=== PATIENT | female | born 1940 | race Caucasian/White ===

== ENCOUNTER 2016-08-25 15:22 | Inpatient (IN) | payer OTHER ==
[2016-08-25] MEDS ORDERED: SODIUM CHLORIDE 0.9% 3 ML FLUSH FLUSH PRN (15:46)
[2016-08-25] MEDS ORDERED: Albuterol/Ipratropium Neb 3 ML NEB NEB ONE (15:47)
[2016-08-25] MEDS ORDERED: METHYLPREDNISOLONE 125 MG/2 ML VIAL IV ONE (15:47)
[2016-08-25 15:48] VITALS: BMI 34.3
--- NOTE | 2016-08-25 15:52 | EDPRACDOC ---
- General Information Information Source: Patient Mode Of Arrival: Ambulance - History of Present Illness Onset: 2-3 DAYS HPI: PT PRESENTS TO ED SENT FROM PMD OFFICE FOR INCREASED SOB AND COUGH STATES SHE NORMALLY WEARS 4L NC OXYGEN AT HOME AND HAS BEEN INCREASING NEBS AND NOT GETTING MUCH RELIEF. CLEAR TO YELLOW SPUTUM. Shortness of Breath: Mild Relevant History: Reports: COPD Cough: Reports: Productive, Clear, White, Yellow Rhinorrhea: Reports: None Ear Symptoms: Reports: None SOB Worsens with: Reports: Exertion, Coughing SOB Improves with: Reports: Nothing Associated Signs and symptoms: Reports: Cough, Other (INCREASED SOB AND COUGH) <Jamila Yap - Last Filed: 08/25/16 18:11> <Rubin Longoria - Last Filed: 08/25/16 18:16> - General Information Chief Complaint: Dyspnea/Resp distress Stated Complaint: RESP. PROBLEMS Time Seen by Provider: 08/25/16 15:45 Home Medications: Home Medications Citalopram Hydrobromide [Celexa] 20 mg PO DAILY 05/15/15 Ipratropium/Albuterol Sulfate [Combivent Respimat] 1 puff INH RTQ6 05/15/15 Nebulizer [Erapid Nebulizer] 1 each MC .UNKNOWN 05/15/15 Roflumilast [Daliresp] 500 mcg PO DAILY 05/15/15 Furosemide [Lasix] 20 mg PO DAILY 05/21/15 Levalbuterol [Xopenex 1.25 mg] 1.25 mg INH QID 03/24/16 Memantine HCl [Namenda] 28 mg PO DAILY 03/24/16 Tiotropium [place] [Spiriva] 18 mcg INH DAILY 03/24/16 Allergies/Adverse Reactions: Allergies Allergy/AdvReac Type Severity Reaction Status Date / Time donepezil Allergy Unknown Verified 08/25/16 15:28 oxycodone HCl [From Roxicet] Allergy Unknown Verified 08/25/16 15:28 - Treatment Prior to ED Arrival Reported Medications/Treatment [employer] QUALITY CONSULTANT Meds/Treatments Given O2 via Cannula,Neb Treatment(Albuterol) EMS Treatment ALS IV No <Jamila Yap - Last Filed: 08/25/16 18:11> - Treatment Prior to ED Arrival Reported Medications/Treatment AIR QUALITY CONSULTANT Meds/Treatments Given O2 via Cannula,Neb Treatment(Albuterol) EMS Treatment ALS IV No <Rubin Longoria - Last Filed: 08/25/16 18:16> ED Past Medical History - History Reviewed Yes Nurses notes reviewed and agree except as marked Travel Outside of [place] in the Last 3 Months?: No - Patient Medical History Neurological History: Reports: Dementia. Denies: Cerebrovascular Accident, Seizures, Parkinson's Cardiac History: Reports: Hypertension, Hypercholesterolemia, Valvular Heart Disease. Denies: Congestive Heart Failure, Heart Attack, Syncope Respiratory History: Reports: COPD, Pneumonia, Emphysema. Denies: Asthma GI/ History: Reports: Renal Disease, Gastroesophageal Reflux. Denies: Renal Failure, Urinary Tract Infection, Kidney Stones Musculoskeletal History: Reports: Osteoarthritis Psychological History: Reports: Depression, Anxiety. Denies: Substance Use Disorder Systemic History: Reports: Cancer (LUNG), Anemia. Denies: Hyperthyroidism, Hypothyroidism Surgical History: Reports: Hysterectomy (UTERUS ONLY), Other (lobectomy). Denies: Cholecystectomy, Hernia Surgery, Tonsillectomy/Adnoidectomy Date of Last Chemotherapy Date: 2010 - Family Medical History Reports: Diabetes (brother), Cancer (brother). Denies: Hypertension, Stroke, Cardiac Disorders - Social Medical History Smoking Status: Former smoker Social History: Denies: Substance Use Disorder ETOH: None Substance Abuse: None Lives With: Spouse Lives In: Home <Jamila Yap - Last Filed: 08/25/16 18:11> EDM Review of Systems - Review of Systems ROS Negative Except as Marked: Yes All systems reviewed and were negative except as marked Constitutional: No Symptoms Reported. negative: Fever, Chills, Weakness, Fatigue, Loss of Appetite Eyes: No Symptoms Reported. negative: Redness, Blurred Vision, Double Vision, Discharge, Pain, Light Sensitive, Photophobia Ears: No Symptoms Reported. negative: Pain, Hearing Loss, Drainage, Ear Pulling Throat: No Symptoms Reported. negative: Pain, Swelling Nose: No Symptoms Reported. negative: Congestion, Bleeding, Discharge, Injection, Swelling, Deformity, Ecchymosis, Tender, Abrasion, Laceration Mouth: No Symptoms Reported. negative: Pain, Drooling Respiratory: Cough, Shortness of Breath, Wheezing, Sputum. negative: Barky Cough, Brassy Cough, Hemoptysis Cardiovascular: No Symptoms Reported. negative: Chest Pain, Palpitations, Syncope, Edema, Orthopnea, PND, Skin Mottling, Cyanosis Gastrointestinal: No Symptoms Reported. negative: Pain, Constipation, Nausea, Vomiting, Diarrhea, Melena, Formula Intolerance Genitourinary: No Symptoms Reported. negative: Dysuria, Hematuria, Frequency, Discharge, Bleeding, Testicular Pain, Neurological: No Symptoms Reported. negative: Headache, Dizziness, Seizure, Numbness, Weakness, Speech Difficulty, Gait Difficulty Musculoskeletal: No Symptoms Reported. negative: Neck, Chestwall, Ribs, Back, Shoulder, Arm, Elbow, Forearm, Wrist, Hand, Pelvis, Hip, Femur, Knee, Leg, Ankle , Foot Integumentary: No Symptoms Reported. negative: Itching, Rash, Bruising, Wound Allergic/Immunologic: No Symptoms Reported. negative: Hives, Itching Hematologic: No Symptoms Reported. negative: Lymphadenopathy, Easy Bruising, Easy Bleeding Endocrine: No Symptoms Reported. negative: Weight Gain, Weight Loss Psychiatric: No Symptoms Reported. negative: Anxiety, Depression, Hallucinations, Insomnia, Suicidal <Jamila Yap - Last Filed: 08/25/16 18:11> - Physical Exam Constitutional: Alert (Awake), Distress (RESPIRATORY) Oriented to: Time, Person, Place Last recorded Vital Signs: Last Vital Signs Temp 98.6 F 08/25/16 15:44 Pulse 118 08/25/16 15:44 Resp 26 H 08/25/16 15:44 BP 130/59 L 08/25/16 15:44 Pulse Ox 91 08/25/16 15:44 Oxygen Pulse Oxygen Saturation 91 O2 Device Nasal Cannula Oxygen Flow Rate 6 Fraction of Inspired Oxygen ( FIO2) - HEENT Head: Normal ( normocephalic) Eye Exam: Normal (PERRL, EOMI, Sclera white) Oropharynx: Normal (Pharynx:Moist without exudate,Gums-no swelling) Tympanic Membrane: Normal ENT EAC: Normal TMJ: Normal Nose: No Symptoms Reported (septum midline) Neck: Normal (FROM, trachea at midline) - Respiratory/Cardiovascular Respiratory: Accessory Muscle Use, Diminished, Rhonchi, Tachypnea, Wheezes Cardiovascular: Normal (RRR without murmur, gallop or rub) - GI Auscultation: Normal (NABS) Palpation: Normal (Soft,No rebound or guarding, non distended) Tenderness: Non tender Ramirez's Sign: Negative - Bladder: Normal - Musculoskeletal Back: Normal (Non-Tender) Extremities: Normal (Normal tone, Pulses 2+ No cyanosis or edema, FROM) - Integumentary Skin: Normal, Warm, Dry Lymphatics: Normal (no adenopathy) - Neurologic Memory Impaired: Normal Motor Function: Normal (Normal tone, Pulses 2+ No cyanosis or edema, FROM) Cranial Nerve: Normal (CN II-X11 intact sensation, strength 5/5) Cerebellar: Normal Mood Description: Normal Perception: Normal <Jamila Yap - Last Filed: 08/25/16 18:11> - Physical Exam Last recorded Vital Signs: Last Vital Signs Temp 98.6 F 08/25/16 15:44 Pulse 112 08/25/16 17:16 Resp 20 08/25/16 17:16 BP 156/64 08/25/16 17:16 Pulse Ox 91 08/25/16 17:16 Oxygen Pulse Oxygen Saturation 91 O2 Device Nasal Cannula Oxygen Flow Rate 6 Fraction of Inspired Oxygen ( FIO2) <Rubin Longoria - Last Filed: 08/25/16 18:16> ED SOB MDM - Differential Diagnosis Differential Diagnosis: Heart Failure, Pnuemonia, Other (COOPD EXACERBATION) - Results Result Diagrams: 08/25/16 16:05 08/25/16 16:05 - EKG EKG #1 EKG Time: 15:34 -: Yes EKG interpreted by me Rate: bpm: 118 [place]: Normal Rhythm: ST Block: None Hypertrophy: LAE ST: Normal - Diagnostic Imaging CXR Image interpreted by: Radiologist Diagnostic Imaging Comments: Patient Name: CHLOE MACHUCA LOC: ED : 1940 AGE: 76 Order Date:08/25/16 Date of Service: 08/25/16 Report # [id number] Ord Physician: Jamila Yap Exam # [id number] Emergency Physician: Provider,ER Exam(s): [id number] RAD/DG CHEST PORTABLE CLINICAL DATA: Shortness of Breath EXAM: PORTABLE CHEST 1 VIEW COMPARISON: 04/22/2016 and 03/28/2016 FINDINGS: Cardiomediastinal silhouette is stable. Bilateral emphysematous changes again noted. Surgical clips in left axilla . Again noted right perihilar and right upper lobe scarring. Streaky airspace in right base/ infrahilar region highly suspicious for infiltrate superimposed on chronic fibrotic changes. Stable fibrotic changes left base. IMPRESSION: Bilateral emphysematous changes again noted. Surgical clips in left axilla . Again noted right perihilar and right upper lobe scarring. Streaky airspace in right base/ infrahilar region highly suspicious for infiltrate superimposed on chronic fibrotic changes. Stable fibrotic changes left base. Electronically Signed By: Sebastián Mullins M.D. On: 08/25/2016 16:27 Electronically Signed By: Sebastián Mullins MD Electronically Signed Date/Time: 630 Dictate Date/Time: 08/25/161622 Technologist: Fernando Franco Transcribed By: Partha Transcribed Date/Time: 08/25/161626 <Jamila Yap - Last Filed: 08/25/16 18:11> - Results Result Diagrams: 08/25/16 16:05 08/25/16 16:05 Results: WBC 9.9 xk/uL (3.8-10.8) 08/25/16 16:05 RBC 4.39 xM/uL (4.20-5.40) 08/25/16 16:05 Hgb 11.5 g/dL (12.0-16.0) L 08/25/16 16:05 Hct 35.1 % (36-47) L 08/25/16 16:05 MCV 80 fL (81-99) L 08/25/16 16:05 MCH 26.1 pg (27-32) L 08/25/16 16:05 MCHC 32.7 g/dl (33-36) L 08/25/16 16:05 RDW 16.6 % (11.5-14.5) H 08/25/16 16:05 Plt Count 217 xk/uL (130-400) 08/25/16 16:05 MPV 8.4 fL (7.4-10.4) 08/25/16 16:05 Neut % (Auto) 66.9 % (45-76) 08/25/16 16:05 Lymph % (Auto) 20.6 % (17-44) 08/25/16 16:05 [place] % (Auto) 8.9 % (3-10) 08/25/16 16:05 Eos % (Auto) 2.7 % (0-5) 08/25/16 16:05 Baso % (Auto) 0.9 % (0-2) 08/25/16 16:05 Absolute Neuts (auto) 6.53 xk/uL (1.7-8.2) 08/25/16 16:05 Absolute Lymphs (auto) 1.98 xk/uL (0.65-4.75) 08/25/16 16:05 PT 10.7 SEC (9.2-11.2) 08/25/16 16:05 INR 1.0 08/25/16 16:05 APTT 25.7 SEC (22-35) 08/25/16 16:05 Puncture Site Left radial 08/25/16 16:10 pH 7.510 pH UNITS (7.35-7.45) H 08/25/16 16:10 pCO2 39.0 mmHg (35-45) 08/25/16 16:10 pO2 59.0 mmHg (80-100) L 08/25/16 16:10 HCO3 31.1 MMOL/L (22-26) H 08/25/16 16:10 Total CO2 32.3 MMOL/L (23-27) H 08/25/16 16:10 Base Excess 7.5 (+/- 2) H 08/25/16 16:10 FiO2 % 4 lpm 08/25/16 16:10 Specimen Drawn By Stana 08/25/16 16:10 Sodium 141 mEq/L (137-146) 08/25/16 16:05 Potassium 3.2 mEq/L (3.5-5.1) L 08/25/16 16:05 Chloride 97 mEq/L (98-107) L 08/25/16 16:05 Carbon Dioxide 32 mMOL/L (22-33) 08/25/16 16:05 Anion Gap 15 mEq/L (8-16) 08/25/16 16:05 BUN 13 MG/DL (7-17) 08/25/16 16:05 Creatinine 0.80 MG/DL (0.52-1.04) 08/25/16 16:05 Estimated GFR (MDRD) > 60 mL/min (>=60) 08/25/16 16:05 Glucose 99 MG/DL (70-99) 08/25/16 16:05 Calculated Osmolality 271 MOs/Kg (270-290) 08/25/16 16:05 Calcium 9.1 MG/DL (8.4-10.2) 08/25/16 16:05 Corrected Calcium 9.2 MG/DL (8.4-10.2) 08/25/16 16:05 Total Bilirubin 0.7 MG/DL (0.2-1.3) 08/25/16 16:05 AST 25 IU/L (14-36) 08/25/16 16:05 ALT 23 IU/L (9-52) 08/25/16 16:05 Alkaline Phosphatase 94 IU/L (55-165) 08/25/16 16:05 Troponin I < 0.01 ng/mL (<.04) 08/25/16 16:05 Lna-E-Idvbkztxdjx Pept 134 pg/mL (0-900) 08/25/16 16:05 Total Protein 7.3 G/DL (6.3-8.2) 08/25/16 16:05 Albumin 3.9 G/DL (3.5-5.0) 08/25/16 16:05 Lab Results 08/25/16 08/25/16 08/25/16 16:10 16:05 16:05 WBC 9.9 RBC 4.39 Hgb 11.5 L Hct 35.1 L MCV 80 L MCH 26.1 L MCHC 32.7 L RDW 16.6 H Plt Count 217 MPV 8.4 Neut % (Auto) 66.9 Lymph % (Auto) 20.6 [place] % (Auto) 8.9 Eos % (Auto) 2.7 Baso % (Auto) 0.9 Absolute Neuts (auto) 6.53 Absolute Lymphs (auto) 1.98 PT 10.7 INR 1.0 APTT 25.7 Puncture Site Left radial pH 7.510 H pCO2 39.0 pO2 59.0 L HCO3 31.1 H Total CO2 32.3 H Base Excess 7.5 H FiO2 % 4 lpm Specimen Drawn By Stana Sodium Potassium Chloride Carbon Dioxide Anion Gap BUN Creatinine Estimated GFR (MDRD) Glucose Calculated Osmolality Calcium Corrected Calcium Total Bilirubin AST ALT Alkaline Phosphatase Troponin I Mak-[id number] Pept Total Protein Albumin 08/25/16 16:05 WBC RBC Hgb Hct MCV MCH MCHC RDW Plt Count MPV Neut % (Auto) Lymph % (Auto) [place] % (Auto) Eos % (Auto) Baso % (Auto) Absolute Neuts (auto) Absolute Lymphs (auto) PT INR APTT Puncture Site pH pCO2 pO2 HCO3 Total CO2 Base Excess FiO2 % Specimen Drawn By Sodium 141 Potassium 3.2 L Chloride 97 L Carbon Dioxide 32 Anion Gap 15 BUN 13 Creatinine 0.80 Estimated GFR (MDRD) > 60 Glucose 99 Calculated Osmolality 271 Calcium 9.1 Corrected Calcium 9.2 Total Bilirubin 0.7 AST 25 ALT 23 Alkaline Phosphatase 94 Troponin I < 0.01 Aar-T-Bmldvvgazhu Pept 134 Total Protein 7.3 Albumin 3.9 <Rubin Longoria - Last Filed: 08/25/16 18:16> - Departure Education/Counseling Given To: Patient Education/Counseling Given Regarding: Diagnosis, Treatment, Prognosis, Follow Up <Jamila Yap - Last Filed: 08/25/16 18:11> - Departure Yes I personally saw and evaluated the patient. Decision to Admit Time: 18:15 (d/w Dr Caballero, will admit) Decision to admit date: 08/25/16 Decision to admit: from ED <Rubin Longorai - Last Filed: 08/25/16 18:16> - Departure Final Diagnosis: COPD exacerbation, Acute respiratory failure with hypoxia Right lower lobe pneumonia Qualifiers: Pneumonia type: due to unspecified organism Qualified Code(s): J18.1 - Lobar pneumonia, unspecified organism Instructions: COPD (Chronic Obstructive Pulmonary Disease) (ED), Bacterial Pneumonia (ED) Referrals: Anne Rosario PA [Primary Care Provider] - One Week Prescriptions: No Action Roflumilast [Daliresp] 500 mcg PO DAILY Citalopram Hydrobromide [Celexa] 20 mg PO DAILY Ipratropium/Albuterol Sulfate [Combivent Respimat] 1 puff INH RTQ6 Nebulizer [Erapid Nebulizer] 1 each MC .UNKNOWN Furosemide [Lasix] 20 mg PO DAILY Memantine HCl [Namenda] 28 mg PO DAILY Levalbuterol [Xopenex 1.25 mg] 1.25 mg INH QID Tiotropium [place] [Spiriva] 18 mcg INH DAILY
[2016-08-25] MEDS ORDERED: ALBUTEROL 0.083% 3 ML NEB NEB ONE ×2 (15:53→17:47)
[2016-08-25 16:11] LABS: AUTOMATED BASOPHIL 0.9 % (0-2); AUTOMATED EOSINOPHIL 2.7 % (0-5); AUTOMATED LYMPH 20.6 % (17-44); AUTOMATED MONOCYTE 8.9 % (3-10); AUTOMATED NEUTROPHIL 66.9 % (45-76); MPV 8.4 fL (7.4-10.4)
[2016-08-25 16:18] LABS: ALLEN'S TEST PASS; BEb 7.5 (+/- 2); TCO2 32.3 MMOL/L (23-27)
[2016-08-25] MEDS ORDERED: CEFTRIAXONE 2 GM in D5W 100 ML IV ONE (16:21)
[2016-08-25] MEDS ORDERED: AZITHROMYCIN 500 MG in D5W 250 ML IV ONE (16:21)
[2016-08-25 16:22] LABS: ABG Draw Site Left Radial
[2016-08-25 16:24] LABS: PARTIAL THROMB. TIME 25.7 SEC (22-35)
--- NOTE | 2016-08-25 16:30 | DIRPT ---
CLINICAL DATA: Shortness of Breath EXAM: PORTABLE CHEST 1 VIEW COMPARISON: 04/22/2016 and 03/28/2016 FINDINGS: Cardiomediastinal silhouette is stable. Bilateral emphysematous changes again noted. Surgical clips in left axilla . Again noted right perihilar and right upper lobe scarring. Streaky airspace in right base/ infrahilar region highly suspicious for infiltrate superimposed on chronic fibrotic changes. Stable fibrotic changes left base. IMPRESSION: Bilateral emphysematous changes again noted. Surgical clips in left axilla . Again noted right perihilar and right upper lobe scarring. Streaky airspace in right base/ infrahilar region highly suspicious for infiltrate superimposed on chronic fibrotic changes. Stable fibrotic changes left base. Electronically Signed By: Sebastián Mullins M.D. On: 08/25/2016 16:27
[2016-08-25 16:32] LABS: BLOOD UREA NITROGEN 13 MG/DL (7-17); CALC CORRECTED 9.2 MG/DL (8.4-10.2); CALCIUM 9.1 MG/DL (8.4-10.2); CALCULATED OSMOLALITY 271 MOs/Kg (270-290); CHLORIDE 97 mEq/L (98-107); GLUCOSE 99 MG/DL (70-99); SODIUM LEVEL 141 mEq/L (137-146); TOTAL PROTEIN 7.3 G/DL (6.3-8.2)
[2016-08-25] MEDS ORDERED: SODIUM CHLORIDE 0.9% 3 ML FLUSH FLUSH SCH (18:00)
--- NOTE | 2016-08-25 18:42 | HISTPHYS ---
- Chief Complaint shortness of breath - History of Present Illness PRIMARY CARE PROVIDER: Anne Rosario HOSPITAL UNIT CLERK: Dr. Araujo HPI: The patient is a 76yo woman with COPD who presents with shortness of breath. She was coughing and so short of breath that she can barely take a few steps. Now she is even short of breath while resting. Onset: Yesterday. Duration: intermittent. Character: can't get a good breath. Can't do anything because she is so short of breath. Alleviated by: Nothing. Exacerbated by: any exertion. Associated Symptoms: Coughing productive of thick white sputum. Wheezing. Shortness of breath. No chest pain. No fever or chills. Nausea with vomiting. No abdominal pain, diarrhea, constipation, or bloody stool. Difficulty walking, and uses walker, over the last several months. Treatments: none at home except usual medications. Reviewed notes from primary care office; notes greatly appreciated. - Medical History Cardiac History: Reports: Hypertension, Hypercholesterolemia Respiratory History: Reports: COPD (and PULMONARY FIBROSIS. On 4L NC @home.), Pneumonia, Emphysema (and Left PNEUMOTHORAX years ago- 1979.) GI/ History: Reports: Gastroesophageal Reflux Musculoskeletal History: Reports: Osteoarthritis Systemic History: Reports: Cancer (LUNG IIIB (T3N0M0) squamous c. Chemo to 2009. [address] recurrence. Dr[address] Garza.), Anemia Neurological History: Reports: Dementia Psychological History: Reports: Depression, Anxiety. Denies: Substance Use Disorder OTHER HISTORY: ECHOCARDIOGRAM 12/08/2013: EF 65-70% Overall left ventricular systolic function is normal. Diastolic filling pattern indicates impaired relaxation. Mild mitral regurgitation. Mild tricuspid regurgitation. Right ventricular systolic pressure, as measured by Doppler, is 32.9 mmHg. No pericardial effusion. Note: Immunoglobulins and zirdm-3-kmuyrgffvqu were checked by Dr. Araujo during a previous visit, 05/16/2015. Results: Yysgc-8-gijtphepgyk 167, Phenotype MM. 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 She pulled hard on a loom and then became very short of breath. She was found to have a left pneumothorax. Pneumovax: 06/2008 - Surgical History Reports: Hysterectomy (UTERUS ONLY. 1979.), Other (Left lobectomy approx 2009) - Medictions/Allergies Allergies donepezil Allergy (Verified 08/25/16 15:28) Unknown oxycodone HCl [From Roxicet] Allergy (Verified 08/25/16 15:28) Unknown Current Medication List: Reviewed Home Medications Citalopram Hydrobromide [Celexa] 20 mg PO DAILY 05/15/15 Ipratropium/Albuterol Sulfate [Combivent Respimat] 1 puff INH RTQ6 05/15/15 Nebulizer [Erapid Nebulizer] 1 each MC .UNKNOWN 05/15/15 Roflumilast [Daliresp] 500 mcg PO DAILY 05/15/15 Furosemide [Lasix] 20 mg PO DAILY 05/21/15 Levalbuterol [Xopenex 1.25 mg] 1.25 mg INH QID 03/24/16 Memantine HCl [Namenda] 28 mg PO DAILY 03/24/16 Tiotropium [place] [Spiriva] 18 mcg INH DAILY 03/24/16 - Family History Reports: Diabetes (Brother), Cancer (Brother: brain tumor.), Cardiac Disorders ( Brother: CT), Renal Disease (Brother) - Social History Smoking Status: Former smoker (Quit many years ago. Previously 4-5 ppd.) Social History: Denies: Alcohol Use, Substance Use Disorder Worked in a [employer]. The patient reports she lives in [place] but if she has to be hospitalized, she prefers to come to [facility] because the nurses are so nice and are wonderful. She also reports Dr. Araujo has been very helpful to her and she comes here because he can see her at this hospital. - Review of Systems GENERAL: No Fever, chills, or diaphoresis. Positive for fatigue/malaise. HEENT: No ear pain or discharge. No nasal discharge or bleeding. No throat pain or swelling. No eye pain or eye redness. RESPIRATORY: Coughing productive of thick white sputum. Wheezing. Shortness of breath. CARDIOVASCULAR: No chest pain or palpitations. GI: Nausea with vomiting. No abdominal pain, diarrhea, constipation, or bloody stool. NEUROLOGICAL: No headache or focal weakness. INTEGUMENT: no rashes, itching, or lesions. LYMPHATIC SYSTEM: no lymph node swelling or pain. MUSCULOSKELETAL: no pain or joint swelling. GENITOURINARY: No dysuria or hematuria. ENDOCRINE: No polyuria or polydipsia. HEME: No chronic anemia, bleeding, or easy bruising. - Physical Exam Vital Signs: Initial Vitals Temperature 98.6 F 08/25/16 15:44 Pulse Rate 118 08/25/16 15:44 Respiratory Rate 26 H 08/25/16 15:44 Blood Pressure 130/59 L 08/25/16 15:44 Pulse Oxygen Saturation 91 08/25/16 15:44 Vital Signs - 24 hr 08/25/16 08/25/16 15:44 17:16 Temperature 98.6 F Pulse Rate 118 112 Respiratory 26 H 20 Rate Blood Pressure 130/59 L 156/64 Pulse Oxygen 91 91 Saturation Weight: 83.9 kg Height: 5'4" BMI: 31.8 - Other Exam Other Exam Findings: GENERAL: Ill-appearing, well nourished, in acute distress. HEENT: Normocephalic, atraumatic; pupils equal and round. Nares patent, without discharge or bleeding. No oropharyngeal lesions or erythema. Mucous membranes are dry. NECK: is supple, no masses, trachea midline. RESPIRATORY: Clear to auscultation bilaterally. Chest wall movements are symmetric. Tachypnea to 30. Intermittent use of accessory muscles to breathe. Rhonchi on right. Inspiratory and expiratory wheezing. CARDIOVASCULAR: Normal S1, S2. No murmurs, rubs, or gallops. PMI non-displaced. Carotids: no carotid bruits. Mild tachycardia. DP pulses 2+ bilaterally. GI: soft, nontender, non-distended, normal active bowel sounds. No hepatosplenomegaly. INTEGUMENT: Clean, dry, and intact. No rashes. No lesions. MUSCULOSKELETAL: Moving all extremities. No cyanosis. Clubbing noted. Edema: none bilaterally. NEUROLOGICAL: Cranial nerves 2-12 grossly intact. Motor 4/5 throughout. Reflexes : 2+ bilaterally. Babinski: toes downgoing bilaterally. Intact Finger to nose. Sensory grossly intact to light touch. Intact rapid alternating movements bilaterally. No pronator drift. PSYCHIATRIC: Fully oriented. Normal and appropriate affect. LYMPHATIC: No cervical lymphadenopathy. No supraclavicular lymphadenopathy. - Lab Results Laboratory Results - last 24 hr 08/25/16 08/25/16 08/25/16 16:05 16:05 16:05 WBC 9.9 RBC 4.39 Hgb 11.5 L Hct 35.1 L MCV 80 L MCH 26.1 L MCHC 32.7 L RDW 16.6 H Plt Count 217 MPV 8.4 Neut % (Auto) 66.9 Lymph % (Auto) 20.6 [place] % (Auto) 8.9 Eos % (Auto) 2.7 Baso % (Auto) 0.9 Absolute Neuts (auto) 6.53 Absolute Lymphs (auto) 1.98 PT 10.7 INR 1.0 APTT 25.7 Puncture Site pH pCO2 pO2 HCO3 Total CO2 Base Excess FiO2 % Specimen Drawn By Sodium 141 Potassium 3.2 L Chloride 97 L Carbon Dioxide 32 Anion Gap 15 BUN 13 Creatinine 0.80 Estimated GFR (MDRD) > 60 Glucose 99 Calculated Osmolality 271 Calcium 9.1 Corrected Calcium 9.2 Total Bilirubin 0.7 AST 25 ALT 23 Alkaline Phosphatase 94 Troponin I < 0.01 Tne-W-Tnlmpsietep Pept 134 Total Protein 7.3 Albumin 3.9 08/25/16 16:10 WBC RBC Hgb Hct MCV MCH MCHC RDW Plt Count MPV Neut % (Auto) Lymph % (Auto) [place] % (Auto) Eos % (Auto) Baso % (Auto) Absolute Neuts (auto) Absolute Lymphs (auto) PT INR APTT Puncture Site Left radial pH 7.510 H pCO2 39.0 pO2 59.0 L HCO3 31.1 H Total CO2 32.3 H Base Excess 7.5 H FiO2 % 4 lpm Specimen Drawn By Stana Sodium Potassium Chloride Carbon Dioxide Anion Gap BUN Creatinine Estimated GFR (MDRD) Glucose Calculated Osmolality Calcium Corrected Calcium Total Bilirubin AST ALT Alkaline Phosphatase Troponin I Pbv-Z-Cipgrhhpnel Pept Total Protein Albumin Note: Immunoglobulins and zwmgj-1-kckqvkfvjzd were checked by Dr. Araujo during a previous visit, 05/16/2015. Results: Hbhyh-5-budcomdfvay 167, Phenotype MM. (normal) IgG 845 (normal 700-1600) IgA 344 (normal 91-414) IgM 81 (normal 40-230) - Diagnostic Findings DIAGNOSTIC DATA: EK bpm. Sinus tachycardia. Possible left atrial enlargement. Minimal ST depression in V4. Reviewed EKG personally. IMAGING: Chest x-ray, viewed personally: EXAM: PORTABLE CHEST 1 VIEW COMPARISON: 04/22/2016 and 03/28/2016 FINDINGS: Cardiomediastinal silhouette is stable. Bilateral emphysematous changes again noted. Surgical clips in left axilla . Again noted right perihilar and right upper lobe scarring. Streaky airspace in right base/ infrahilar region highly suspicious for infiltrate superimposed on chronic fibrotic changes. Stable fibrotic changes left base. IMPRESSION: Bilateral emphysematous changes again noted. Surgical clips in left axilla . Again noted right perihilar and right upper lobe scarring. Streaky airspace in right base/ infrahilar region highly suspicious for infiltrate superimposed on chronic fibrotic changes. Stable fibrotic changes left base. - Assessment (1) Bacterial lobar pneumonia J15.9 - UNSPECIFIED BACTERIAL PNEUMONIA Acute Present on Admission: Yes Pneumonia. Severe. Requiring continuous oxygen support. Type: Community acquired pneumonia. Criteria for diagnosis: Chest x-ray suggestive of pneumonia, rhonchi on physical exam. Likely bacterial. Plan: Sputum culture has been ordered. Treat with IV ceftriaxone and IV azithromycin. Monitor oxygen saturation levels. (2) Acute and chronic respiratory failure with hypoxia J96.21 - ACUTE AND CHRONIC RESPIRATORY FAILURE WITH HYPOXIA Acute Present on Admission: Yes Increased #L on O2 but patient increasingly tachypneic. PO2 is low at 59 on 4L. Plan: Admit. Place patient on VentiMask 50% and increase as needed. If no improvement then will use BiPAP. Pulmologist consulted. (3) COPD exacerbation J44.1 - CHRONIC OBSTRUCTIVE PULMONARY DISEASE W (ACUTE) EXACERBATION Acute Present on Admission: Yes COPD exacerbation, severe. Plan: Nebs of Duoneb q 6 hours scheduled and albuterol q 2 hours prn. Sputum culture ordered. IV ceftriaxone and IV azithromycin. IV methylprednisolone. Continuous oxygen support. Keep sats below 95% due to COPD. (4) Hypokalemia E87.6 - HYPOKALEMIA Acute Replace potassium with KCl. Check magnesium level and replace as needed. (5) Pulmonary fibrosis J84.10 - PULMONARY FIBROSIS, UNSPECIFIED Acute Present on Admission: Yes Acute on chronic issue. Plan: IV methylprednisolone. Consulted fitness center attendant, Dr. Araujo. (6) Nausea and vomiting R11.2 - NAUSEA WITH VOMITING, UNSPECIFIED Acute Present on Admission: Yes Plan: PRN medications. Case Care Discussed with: Patient, Nursing Staff
[2016-08-25] MEDS ORDERED: PROMETHAZINE 25 MG/ML VIAL IV PRN (20:25)
[2016-08-25] MEDS ORDERED: ONDANSETRON HCL 4 MG/2 ML VIAL IV PRN (20:25)
[2016-08-25] MEDS ORDERED: TEMAZEPAM 15 MG CAP PO PRN (20:25)
[2016-08-25] MEDS ORDERED: SIMETHICONE 80 MG TAB PO PRN (20:25)
[2016-08-25] MEDS ORDERED: SENNA CONCENTRATE TAB PO PRN (20:25)
[2016-08-25] MEDS ORDERED: BISACODYL 5 MG TAB PO PRN (20:25)
[2016-08-25] MEDS ORDERED: ACETAMINOPHEN 325 MG SUPP PR PRN (20:25)
[2016-08-25] MEDS ORDERED: LEVALBUTEROL 1.25 MG in 3 ML NEB NEB PRN (20:30)
[2016-08-25] MEDS: ENOXAPARIN 40 MG/0.4 ML PFS SQ SCH (22:11)
[2016-08-25] MEDS: POTASSIUM CHLORIDE 20 MEQ TAB PO SCH (22:11)
[2016-08-25 22:53] LABS: LEUKOCYTES/URINE NEG (NEGATIVE); NITRITE/URINE NEG (NEGATIVE); RBC/URINE 0-2 (0-5); URINE OCCULT BLOOD NEG (NEG/TRACE); WBC/URINE 0-2 (0-5)
[2016-08-26] MEDS: METHYLPREDNISOLONE 125 MG/2 ML VIAL IV SCH ×4 (00:09→16:34)
[2016-08-26] MEDS ORDERED: Magnesium Sulfate 2 gm/D5W 2 GM/50 ML RTU IV ONE (00:09)
[2016-08-26] MEDS: POTASSIUM CHLORIDE 20 MEQ TAB PO SCH (00:09)
[2016-08-26] MEDS: GUAIFEN 100 MG-DEXTROMETH 10 MG PER 5 ML PO PRN ×2 (00:09→21:44)
[2016-08-26] MEDS ORDERED: Vaccine Screening Complete SCH (01:00)
[2016-08-26] MEDS: Albuterol/Ipratropium Neb 3 ML NEB NEB SCH ×4 (02:06→20:33)
[2016-08-26] MEDS: BENZONATATE 100 MG PERLES PO PRN (03:15)
[2016-08-26 05:21] LABS: MPV 8.9 fL (7.4-10.4)
[2016-08-26 05:44] LABS: BLOOD UREA NITROGEN 15 MG/DL (7-17); CALCIUM 8.9 MG/DL (8.4-10.2); CALCULATED OSMOLALITY 273 MOs/Kg (270-290); CHLORIDE 99 mEq/L (98-107); GLUCOSE 150 mg/dL (70-99); SODIUM LEVEL 140 mEq/L (137-146)
[2016-08-26] MEDS: MEMANTINE HCL 10 MG TAB PO SCH ×2 (08:08→21:21)
[2016-08-26] MEDS: ROFLUMILAST 500 MCG TAB PO SCH (08:09)
[2016-08-26] MEDS: FUROSEMIDE 20 MG TAB PO SCH (08:09)
[2016-08-26] MEDS ORDERED: MEMANTINE HCL 28 MG PO SCH (09:00)
--- NOTE | 2016-08-26 11:20 | GENMEDPROG ---
Chief Complaint: Pneumonia, COPD exacerbation Subjective Note: Doing well, denies any chest pain or fevers. Has her usual chronic cough, sputum is clear as usual. Some dyspnea with exertion. Notes Reviewed: Yes: Events from last night noted and discussed with Clinical Staff Current Medication List: Reviewed Currently: Reports: Cough DVT Prophylaxis: Yes - Physical Examination Vital Signs and I&O: Last Vital Signs Temp 98.3 F 08/26/16 08:06 Pulse 111 08/26/16 09:26 Resp 18 08/26/16 08:06 BP 104/56 L 08/26/16 08:06 Pulse Ox 93 08/26/16 08:06 Oxygen Pulse Oxygen Saturation 93 O2 Device Venturi Mask Oxygen Flow Rate 12 Fraction of Inspired Oxygen ( 50 FIO2) Intake & Output 08/24/16 08/25/16 08/26/16 08/27/16 06:59 06:59 06:59 06:59 Output Total 400 450 Balance -400 -450 Patient's weight 83.659 kg General: Alert, Oriented x3, Mild distress HEENT: EOMI (Sclera white) Neck: Normal Trachea alignment, Normal inspection Lymphatics: Normal (no adenopathy) Respiratory: Accessory Muscle Use, Diminished, Rhonchi, Wheezes Cardiovascular: Regular rate, No Gallops,Rubs/Murmurs GI: Normal bowel sounds, Soft, Non tender (non distended) Extremities/Musculoskeletal: Other (Normal Tone). negative: Edema, Cyanosis Skin: No rashes, No significant lesion Lab/DI/Studies Reviewed: Laboratory Tests 08/26/16 08/26/16 04:25 04:25 WBC 5.7 Hgb 11.3 L Potassium 4.0 BUN 15 Creatinine 0.70 - Assessment (1) Acute and chronic respiratory failure with hypoxia Acute J96.21 - ACUTE AND CHRONIC RESPIRATORY FAILURE WITH HYPOXIA Comment/ Plan: PO2 is low at 59 on 4L, which is her basal rate of home oxygen. Plan: She is being admitted to the hospital for COPD exacerbation and bacterial pneumonia. Place patient on VentiMask 50% and increase as needed. If no improvement then will use BiPAP. Pulmologist Dr. Araujo consulted. (2) Bacterial lobar pneumonia Acute J15.9 - UNSPECIFIED BACTERIAL PNEUMONIA Comment/Plan: Pneumonia. Severe. Requiring continuous oxygen support. Type: Community acquired pneumonia. Criteria for diagnosis: Chest x-ray suggestive of pneumonia, rhonchi on physical exam. Likely bacterial. Plan: Sputum culture has been ordered. Treat with IV ceftriaxone and IV azithromycin. Monitor oxygen saturation levels. (3) COPD exacerbation Acute J44.1 - CHRONIC OBSTRUCTIVE PULMONARY DISEASE W (ACUTE) EXACERBATION Comment/Plan: COPD exacerbation, severe. Plan: Nebs of Duoneb q 6 hours scheduled and albuterol q 2 hours prn. Sputum culture ordered. IV ceftriaxone and IV azithromycin. IV methylprednisolone. Continuous oxygen support. Keep sats below 95% due to COPD. (4) Pulmonary fibrosis Acute J84.10 - PULMONARY FIBROSIS, UNSPECIFIED Comment/Plan: Acute on chronic issue. Plan: Consulted strategic sourcing manager, Dr. Araujo. Case Care Discussed with: Patient, Family, Nursing Staff Total Time: 40
[2016-08-26] MEDS ORDERED: LORAZEPAM 2 MG/ML VIAL IV PRN (15:04)
[2016-08-26] MEDS ORDERED: LORAZEPAM 2 MG/ML VIAL ONE (15:05)
[2016-08-26] MEDS: NS/KCl 20 mEq 1,000 ML IV SCH (15:11)
[2016-08-26] MEDS: AZITHROMYCIN 500 MG in D5W 250 ML IV SCH (15:11)
[2016-08-26] MEDS: ENOXAPARIN 40 MG/0.4 ML PFS SQ SCH (16:34)
[2016-08-26] MEDS: CEFTRIAXONE 1 GM in D5W 100 ML IV SCH (16:35)
[2016-08-27] MEDS: METHYLPREDNISOLONE 125 MG/2 ML VIAL IV SCH ×4 (00:07→17:09)
[2016-08-27] MEDS: NS/KCl 20 mEq 1,000 ML IV SCH ×5 (00:08→20:37)
[2016-08-27] MEDS: Albuterol/Ipratropium Neb 3 ML NEB NEB SCH ×4 (01:48→19:30)
--- NOTE | 2016-08-27 04:17 | HIMCONS ---
DATE OF CONSULT: REQUESTING PHYSICIAN: Landen Barton MD REASON FOR CONSULTATION: Respiratory failure. HISTORY OF PRESENT ILLNESS: This patient is a 76-year-old lady, well known to me from previous office visits. The patient has past medical history significant for COPD and has not been doing well for the past few days. She has been coughing, wheezing, complaining of shortness of breath with dyspnea after walking a few feet. She got worse yesterday. She has been coughing up yellowish phlegm. Denies any fevers or chills. Denies any hemoptysis, hematemesis, hematochezia, or melena. Denies any nausea, vomiting, diarrhea, or constipation. Denies any abdominal pain, leg pains, or swelling. PAST MEDICAL HISTORY: Significant for hypertension, hypercholesterolemia, COPD with pulmonary fibrosis, recurrent pneumonia, history of pneumothorax in , gastroesophageal reflux disease, osteoarthritis; stage IIIB lung cancer, squamous cell, status post chemotherapy with anemia; dementia, depression, anxiety, ejection fraction was 65% to 70%. SURGICAL HISTORY: The patient has had hysterectomy in and left lobectomy in 2009. ALLERGIES: THE PATIENT IS ALLERGIC TO DONEPEZIL AND OXYCODONE. MEDICATION: In the chart were noted. FAMILY HISTORY: Significant for brother having renal disease, cardiac disorders, brain tumor, diabetes. SOCIAL HISTORY: The patient has been a smoker, quit several years ago. No history of alcohol or drug abuse. She used to work in [employer]. REVIEW OF SYSTEMS: Detailed review of systems is negative except for as mentioned in the history of present illness. PHYSICAL EXAMINATION: VITAL SIGNS: Temperature is 98.5 degrees Fahrenheit, pulse is 102, respiratory rate is 18, blood pressure 118/64, pulse ox 96% on oxygen. CHEST: Decreased bilateral air entry with bibasilar rales. HEART: S1, S2. Regular. No murmur. EXTREMITIES: No clubbing, cyanosis, or edema. ABDOMEN: Soft and nontender. Bowel sounds present. Hepatosplenomegaly is absent. NEURO: Grossly nonfocal. The patient is moving all extremities. LABORATORY DATA: White count is 5.7, hemoglobin 11.3, hematocrit 34.8, platelets are 230. PT and INR within normal limits. Blood gas showed a pH of 7.51, pCO2 of 39, PO2 of 59 on 4 liters of oxygen. Sodium 140, potassium 4.0, chloride 99, CO2 of 31, BUN 15, creatinine 0.7, glucose is 150. LFTs are within normal limits. IMAGING REPORTS: Chest x-ray was seen personally and also the CAT scan done over a year ago was noted as well. The patient seems to have significant infiltrates in the lungs with bronchiectasis and right lower lobe fibrosis, also emphysema was noted as well. IMPRESSION: Iwysp-xq-chxompy respiratory failure which is multifactorial including bacterial pneumonia in the right lower lobe with pulmonary fibrosis, chronic obstructive pulmonary disease exacerbation, and possibly bronchiectasis. PLAN: The patient is on Rocephin and Zithromax. I think, this is appropriate at this time. On this patient, I would continue other supportive care, I would add MRSA PCR on this patient. Continue DVT and GI prophylaxis with nebulizers. I would repeat a chest x-ray and a blood gas in the morning. Continue Solu-Medrol 60 mg IV q.6 hours. Thank you very much for the consultation. I will follow the patient with you. [id number]
[2016-08-27 05:27] LABS: MPV 8.8 fL (7.4-10.4)
[2016-08-27 05:38] LABS: ALLEN'S TEST PASS; BEb 1.7 (+/- 2); TCO2 28.6 MMOL/L (23-27)
[2016-08-27 05:40] LABS: ABG Draw Site Left Radial
[2016-08-27 05:40] LABS: BLOOD UREA NITROGEN 24 MG/DL (7-17); CALCIUM 8.5 MG/DL (8.4-10.2); CALCULATED OSMOLALITY 278 MOs/Kg (270-290); CHLORIDE 105 mEq/L (98-107); GLUCOSE 119 mg/dL (70-99); SODIUM LEVEL 142 mEq/L (137-146)
[2016-08-27] MEDS: GUAIFEN 100 MG-DEXTROMETH 10 MG PER 5 ML PO PRN (05:51)
--- NOTE | 2016-08-27 07:14 | DIRPT ---
CLINICAL DATA: Respiratory failure. EXAM: PORTABLE CHEST 1 VIEW COMPARISON: 08/25/2016. CT 04/22/2016. FINDINGS: Mediastinum hilar structures are stable. Stable right upper lobe atelectasis and/or scarring. Interim slight improvement right base infiltrate. Low lung volumes with basilar atelectasis. Chronic interstitial changes. Heart size normal. Surgical clips left axilla. New linear density is noted over the right chest, this could be outside of the patient, attention to this region on follow-up exam suggested. No pneumothorax. IMPRESSION: 1. Interim slight clearing of right base infiltrate. Persistent bibasilar atelectasis. Chronic interstitial changes. 2. Persistent atelectasis and or scarring right upper lobe. 3. Tiny new linear density noted over the right chest, this could be outside of the patient. Attention to this region on follow-up exams suggested. Electronically Signed By: Bobby Corrales On: 08/27/2016 07:12
[2016-08-27] MEDS: ROFLUMILAST 500 MCG TAB PO SCH (09:50)
[2016-08-27] MEDS: MEMANTINE HCL 10 MG TAB PO SCH ×2 (09:50→20:38)
[2016-08-27] MEDS: FUROSEMIDE 20 MG TAB PO SCH (09:50)
--- NOTE | 2016-08-27 10:18 | GENMEDPROG ---
Chief Complaint: PNA Subjective Note: Feeling about the same as the day prior, still with cough, no fever or chest pain. Notes Reviewed: Yes: Events from last night noted and discussed with Clinical Staff Current Medication List: Reviewed Currently: Reports: Cough DVT Prophylaxis: Yes - Physical Examination Vital Signs and I&O: Last Vital Signs Temp 98.0 F 08/27/16 07:48 Pulse 109 08/27/16 08:00 Resp 22 08/27/16 07:48 BP 131/74 08/27/16 07:48 Pulse Ox 98 08/27/16 07:57 Oxygen Pulse Oxygen Saturation 98 O2 Device Nasal Cannula Oxygen Flow Rate 5 Fraction of Inspired Oxygen ( 50 FIO2) Intake & Output 08/25/16 08/26/16 08/27/16 08/28/16 06:59 06:59 06:59 06:59 Intake Total 2449 Output Total 400 1300 300 Balance -400 1149 -300 Patient's weight 83.659 kg General: Alert, Oriented x3, Mild distress HEENT: EOMI (Sclera white) Neck: Normal Trachea alignment, Normal inspection Lymphatics: Normal (no adenopathy) Respiratory: Accessory Muscle Use, Diminished, Rhonchi, Wheezes Cardiovascular: Regular rate, No Gallops,Rubs/Murmurs GI: Normal bowel sounds, Soft, Non tender (non distended) Extremities/Musculoskeletal: Other (Normal Tone). negative: Edema, Cyanosis Skin: No rashes, No significant lesion Lab/DI/Studies Reviewed: Laboratory Tests 08/27/16 08/27/16 08/27/16 04:55 04:55 05:30 WBC 11.0 H Hgb 10.6 L Plt Count 209 pH 7.390 pCO2 45.0 pO2 105.0 H Potassium 4.5 BUN 24 H Creatinine 0.80 - Assessment (1) Acute and chronic respiratory failure with hypoxia Acute J96.21 - ACUTE AND CHRONIC RESPIRATORY FAILURE WITH HYPOXIA Comment/ Plan: PO2 is low at 59 on 4L, which is her basal rate of home oxygen. Plan: She was admitted to the hospital for COPD exacerbation and bacterial pneumonia. Patient initially placed on Ventimask 50%, increased as needed. She is now titrated down to 5 liters/minute nasal cannula oxygen.. If no improvement then will use BiPAP. Pulmologist Dr. Araujo consulted. (2) Bacterial lobar pneumonia Acute J15.9 - UNSPECIFIED BACTERIAL PNEUMONIA Comment/Plan: Pneumonia. Severe. Requiring continuous oxygen support. Type: Community acquired pneumonia. Criteria for diagnosis: Chest x-ray suggestive of pneumonia, rhonchi on physical exam. Likely bacterial. Plan: Sputum culture has been ordered. Treat with IV ceftriaxone and IV azithromycin. Monitor oxygen saturation levels. (3) COPD exacerbation Acute J44.1 - CHRONIC OBSTRUCTIVE PULMONARY DISEASE W (ACUTE) EXACERBATION Comment/Plan: COPD exacerbation, severe. Plan: Nebs of Duoneb q 6 hours scheduled and albuterol q 2 hours prn. Sputum culture ordered. IV ceftriaxone and IV azithromycin. IV methylprednisolone. Continuous oxygen support. Keep sats below 95% due to COPD. (4) Pulmonary fibrosis Acute J84.10 - PULMONARY FIBROSIS, UNSPECIFIED Comment/Plan: Acute on chronic issue. Plan: Consulted systems engineer, Dr. Araujo. - Plan Continue present care with empiric IV antibiotics and steroids. Will keep steroids at current dose today as she is not improving yet. Case Care Discussed with: Patient, Consultants, Nursing Staff Total Time: 39
--- NOTE | 2016-08-27 13:29 | PCM.PULM ---
Chief Complaint: Respiratory failure acute on chronic with hypoxia Pulmonary fibrosis Pneumonia COPD exacerbation Patient sitting at bedside alert and responsive breathing has been short, she has a cough, sputum, wheeze. Denies chest pain or hemoptysis Medication list reviewed:yes Notes reviewed;yes, Events from last night noted and discussed with Clinical Staff DVT/GI prophylaxis;yes - Physical Examination Vital Signs and I&O: Last Vital Signs Temp 97.7 F 08/27/16 11:11 Pulse 116 08/27/16 12:00 Resp 20 08/27/16 11:11 BP 109/56 L 08/27/16 11:11 Pulse Ox 95 08/27/16 11:11 Oxygen Pulse Oxygen Saturation 95 O2 Device Nasal Cannula Oxygen Flow Rate 5 Fraction of Inspired Oxygen ( 50 FIO2) Intake & Output 08/24/16 08/25/16 08/26/16 08/27/16 23:59 23:59 23:59 23:59 Intake Total 1065 1384 Output Total 100 1300 600 Balance -100 -235 784 Patient's weight 83.915 kg 83.659 kg General: Alert, Oriented x3, Cooperative, Mild distress, Obese, Weakness, Fatigue Respiratory: Accessory Muscle Use, Diminished, Rhonchi, Tachypnea, Wheezes Cardiovascular: Regular rate, Regular rate and rhythm, Normal S1, No Gallops, Rubs/Murmurs, Normal S2, Good Pedal Pulses GI: Normal bowel sounds, Soft, Non tender, No hepatospenomegaly, No masses, Obese Extremities/Musculoskeletal: Normal pulses, Edema (1+ BLEs noted) Skin: Warm,Dry and Intact, No rashes, No breakdown, No significant lesion Neurological: Normal Steady Gait, Normal speech, Normal tone, Cranial nerves 3- 12 NL Psych/Mental Status: Appropriate, Anxious Result Diagrams: 08/27/16 04:55 08/27/16 04:55 Labs (last 24 hours): Laboratory Results - last 24 hr 08/27/16 08/27/16 08/27/16 04:55 04:55 05:30 WBC 11.0 H RBC 4.03 L Hgb 10.6 L Hct 32.6 L MCV 81 MCH 26.2 L MCHC 32.3 L RDW 16.4 H Plt Count 209 MPV 8.8 Puncture Site Left radial pH 7.390 pCO2 45.0 pO2 105.0 H HCO3 27.2 H Total CO2 28.6 H Base Excess 1.7 FiO2 % Vm 50% Specimen Drawn By Stana Sodium 142 Potassium 4.5 Chloride 105 Carbon Dioxide 28 Anion Gap 14 BUN 24 H Creatinine 0.80 Estimated GFR (MDRD) > 60 Glucose 119 H Calculated Osmolality 278 Calcium 8.5 Lab/DI/Studies Reviewed: EKG: NSR, NO ST or ST wave changes noted Microbiology 08/27/16 02:45 Nares Nasal Screen MRSA (PCR)([place]) - Final NEGATIVE for MRSA DNA 08/25/16 19:47 Sputum Gram Stain - Final 08/25/16 19:47 Sputum Sputum Culture - Final Normal oral/respiratory david present 08/25/16 22:35 Urine - Clean Catch - Midstream Urine Culture - Preliminary Escherichia coli 08/25/16 17:10 Blood Blood Culture - Preliminary No growth aerobically or anaerobically at 24-48 hours. NORMAL VALUE = No growth 08/25/16 17:00 Blood Blood Culture - Preliminary No growth aerobically or anaerobically at 24-48 hours. NORMAL VALUE = No growth Cxray; 1 view Chest x-ray was seen personally patient has improving right hilar infiltrate persistent atelectasis of bases were noted bilaterally hyperinflated lung siddiqui Medications Acetaminophen (Tylenol Tablet) 650 mg PO Q6H PRN; Protocol PRN Reason: Mild Pain or Fever above 100.4 Stop: 09/08/16 16:59 Albuterol/Ipratropium (Duoneb) 3 ml NEB RTQ6 DANO Stop: 09/08/16 16:59 Last Admin: 08/27/16 13:33 Dose: 3 ml Benzonatate (Tessalon) 100 mg PO TID PRN PRN Reason: Cough - First Option Stop: 09/08/16 16:59 Last Admin: 08/26/16 03:15 Dose: 100 mg Ceftriaxone Sodium 1 gm/ (Dextrose) 100 mls @ 100 mls/hr IV Q24H DANO Stop: 09/02/16 17:59 Last Admin: 08/26/16 16:35 Dose: 100 mls/hr Enoxaparin Sodium (Lovenox) 40 mg SQ 1800 DANO Stop: 09/08/16 20:59 Last Admin: 08/26/16 16:34 Dose: 40 mg Furosemide (Lasix) 20 mg PO DAILY DANO Stop: 09/09/16 08:59 Last Admin: 08/27/16 09:50 Dose: 20 mg Guaifenesin/Dextromethorphan (Robitussin Dm) 10 ml PO Q6H PRN PRN Reason: Cough - Alternative Stop: 09/08/16 16:59 Last Admin: 08/27/16 05:51 Dose: 10 ml Levalbuterol HCl (Xopenex 1.25 Mg) 1.25 mg NEB Q2H PRN PRN Reason: Wheezing Stop: 09/08/16 16:59 Lorazepam (Ativan) 1 mg IV Q4H PRN PRN Reason: Anxiety Stop: 09/09/16 16:59 Memantine (Namenda) 10 mg PO BID DANO Stop: 09/09/16 08:59 Last Admin: 08/27/16 09:50 Dose: 10 mg Methylprednisolone Sodium Succinate (Solu-Medrol) 60 mg IV Q6H DANO Stop: 09/09/16 00:00 Last Admin: 08/27/16 11:56 Dose: 60 mg Ondansetron HCl (Zofran) 4 mg IV Q6H PRN PRN Reason: Nausea/Vomiting - First Option Stop: 09/08/16 16:59 Potassium Chloride/Sodium Chloride (Normal Saline-Kcl 20 Meq Per 1000 Ml) 1, 000 mls @ 100 mls/hr IV Q10H [facility] Stop: 09/09/16 14:59 Last Admin: 08/27/16 11:54 Dose: 100 mls/hr Roflumilast (Daliresp) 500 mcg PO DAILY [facility] Stop: 09/09/16 08:59 Last Admin: 08/27/16 09:50 Dose: 500 mcg Temazepam (Restoril) 15 mg PO 2100,2200 PRN PRN Reason: Sleep or Insomnia Stop: 09/08/16 16:59 - Assessment/Plan (1) Acute and chronic respiratory failure with hypoxia Acute J96.21 - ACUTE AND CHRONIC RESPIRATORY FAILURE WITH HYPOXIA Comment/Plan: Patient remains on Rocephin and Zithromax and has been on Solu-Medrol 60 mg IV q.6 hours along with nebulizers DVT and GI prophylaxis and oxygen. I told the patient to use the BiPAP while she is sleeping at night and told the nurse to put the BiPAP on her as she seemed to be a little more short of breath than usual I would continue other supportive care on this patient repeat a chest x- ray and a blood gas in the morning (2) Bacterial lobar pneumonia Acute J15.9 - UNSPECIFIED BACTERIAL PNEUMONIA Comment/Plan: Continue other supportive care on this patient with the lower Rocephin and Zithromax and continue full supportive care (3) COPD exacerbation Acute J44.1 - CHRONIC OBSTRUCTIVE PULMONARY DISEASE W (ACUTE) EXACERBATION Comment/Plan: No change in current treatment patient still remains significantly hypoxic and tachypneic (4) Pulmonary fibrosis Acute J84.10 - PULMONARY FIBROSIS, UNSPECIFIED Comment/Plan: Unchanged clinically at this time no change in the treatment I personally saw and evaluated the patient.: Yes Total Face to Face Time: 35 minutes Case Care Discussed with: Patient, Nursing Staff (Nursing staff was instructed to put the patient on BiPAP) Education/Counseling Given To: Patient Education/Counseling Given Regarding: Diagnosis, Treatment, Prognosis, Follow Up , Disposition Plan Plan / Addtional Notes: Patient is critically ill and is in danger of getting worse would follow the patient closely
[2016-08-27 15:58] LABS: ALLEN'S TEST PASS; BEb -0.6 (+/- 2); TCO2 24.3 MMOL/L (23-27)
[2016-08-27 15:59] LABS: ABG Draw Site Right Radial
[2016-08-27] MEDS: AZITHROMYCIN 500 MG in D5W 250 ML IV SCH (17:05)
[2016-08-27] MEDS: ENOXAPARIN 40 MG/0.4 ML PFS SQ SCH (17:08)
[2016-08-27] MEDS ORDERED: NS 1,000 ML IV ONE (17:43)
[2016-08-27] MEDS: CEFTRIAXONE 1 GM in D5W 100 ML IV SCH (17:47)
[2016-08-27] MEDS: ACETAMINOPHEN 325 MG/TAB TABLET PO PRN (20:38)
[2016-08-28] MEDS: METHYLPREDNISOLONE 125 MG/2 ML VIAL IV SCH ×5 (00:13→23:49)
[2016-08-28] MEDS: Albuterol/Ipratropium Neb 3 ML NEB NEB SCH ×4 (01:36→20:18)
[2016-08-28] MEDS: NS/KCl 20 mEq 1,000 ML IV SCH ×3 (04:50→17:27)
[2016-08-28 05:24] LABS: ALLEN'S TEST PASS; TCO2 29.2 MMOL/L (23-27)
[2016-08-28 05:30] LABS: ABG Draw Site Left Radial
[2016-08-28 07:16] LABS: BLOOD UREA NITROGEN 23 MG/DL (7-17); CALCIUM 8.3 MG/DL (8.4-10.2); CALCULATED OSMOLALITY 278 MOs/Kg (270-290); CHLORIDE 109 mEq/L (98-107); GLUCOSE 113 mg/dL (70-99); SODIUM LEVEL 142 mEq/L (137-146)
[2016-08-28 07:23] LABS: MPV 8.8 fL (7.4-10.4)
[2016-08-28] MEDS: MEMANTINE HCL 10 MG TAB PO SCH ×2 (07:32→20:35)
[2016-08-28] MEDS: FUROSEMIDE 20 MG TAB PO SCH (07:32)
[2016-08-28] MEDS: ROFLUMILAST 500 MCG TAB PO SCH (07:32)
--- NOTE | 2016-08-28 07:42 | DIRPT ---
CLINICAL DATA: Respiratory failure EXAM: PORTABLE CHEST 1 VIEW COMPARISON: 08/27/2016 FINDINGS: Portable exam slightly rotated to the right. Severe background emphysema again evident with mild elevation of the right hemidiaphragm. Stable right upper lobe perihilar atelectasis/scarring. Chronic basilar interstitial changes. No superimposed edema, effusion, or pneumothorax. Postop clips in left axilla. IMPRESSION: Stable chronic COPD/emphysema and right upper lobe perihilar atelectasis/scarring. Chronic basilar interstitial changes, worse on the right No significant interval change or new process. Electronically Signed By: Moriah Schmidt M.D. On: 08/28/2016 07:39
--- NOTE | 2016-08-28 08:02 | PCM.PULM ---
Chief Complaint: Respiratory failure acute on chronic Pneumonia COPD exacerbation Pulmonary fibrosis Hypoxia Patient sitting at bedside breathing still short, has a lot of chest congestion. She wears BIPAP at night with some help. Current complaints: Dyspnea,CURTIS,cough,wheeze, fatigue Current medication list reviewed:yes Notes reviewed:yes, Events from last night noted and discussed with Clinical Staff - Physical Examination Vital Signs and I&O: Last Vital Signs Temp 98.0 F 08/28/16 07:51 Pulse 105 08/28/16 07:51 Resp 22 08/28/16 07:51 BP 134/79 08/28/16 07:51 Pulse Ox 95 08/28/16 07:55 Oxygen Pulse Oxygen Saturation 95 O2 Device Nasal Cannula Oxygen Flow Rate 5 Fraction of Inspired Oxygen ( 40 FIO2) Intake & Output 08/25/16 08/26/16 08/27/16 08/28/16 23:59 23:59 23:59 23:59 Intake Total 1065 3112 1190 Output Total 100 1300 2500 600 Balance -100 -235 612 590 Patient's weight 83.915 kg 83.659 kg 89.584 kg General: Alert, Oriented x3, Mild distress, Obese, Fatigue Respiratory: Accessory Muscle Use, Diminished, Rhonchi, Tachypnea, Wheezes ( Scattered bilateral) Cardiovascular: Regular rate (to sinus tach at rate of 110/min), Regular rate and rhythm, Normal S1, No Gallops,Rubs/Murmurs, Normal S2 GI: Normal bowel sounds, Soft, Non tender, No hepatospenomegaly, No masses, Obese Extremities/Musculoskeletal: Normal pulses, Swelling (1+bilateral lower legs) Skin: Warm,Dry and Intact, No rashes, No significant lesion Neurological: Normal Steady Gait, Normal speech, Strength at 5/5 X4 ext, Cranial nerves 3-12 NL Psych/Mental Status: Normal Affect, Anxious Result Diagrams: 08/28/16 05:40 08/28/16 05:40 Labs (last 24 hours): Laboratory Results - last 24 hr 08/27/16 08/28/16 08/28/16 20:47 05:20 05:40 WBC RBC Hgb Hct MCV MCH MCHC RDW Plt Count MPV Puncture Site Left radial pH 7.380 pCO2 47.0 H pO2 112.0 H HCO3 27.8 H Total CO2 29.2 H Base Excess 2.0 FiO2 % 40 Mode BiPAP 10/5 Specimen Drawn By Kaytr Sodium 142 Potassium 4.4 Chloride 109 H Carbon Dioxide 28 Anion Gap 9 BUN 23 H Creatinine 0.70 Estimated GFR (MDRD) > 60 Glucose 113 H Calculated Osmolality 278 Lactic Acid 3.4 H Calcium 8.3 L 08/28/16 05:40 WBC 7.6 RBC 3.91 L Hgb 10.3 L Hct 31.7 L MCV 81 MCH 26.3 L MCHC 32.5 L RDW 16.5 H Plt Count 181 MPV 8.8 Puncture Site pH pCO2 pO2 HCO3 Total CO2 Base Excess FiO2 % Mode BiPAP Specimen Drawn By Sodium Potassium Chloride Carbon Dioxide Anion Gap BUN Creatinine Estimated GFR (MDRD) Glucose Calculated Osmolality Lactic Acid Calcium Lab/DI/Studies Reviewed: EKG: NSR to sinus tachycardia at rate of 110. No ST wave changes noted Cxray: 1 view Chest x-ray was seen personally patient has hyperinflated lung siddiqui with right hilar fullness and right upper lobe either atelectasis versus scarring and bibasilar atelectasis was noted as well Medications Azithromycin 500 mg/ Dextrose 250 mls @ 250 mls/hr IV Q24H DANO Stop: 08/31/16 15:59 Last Admin: 08/26/16 15:11 Dose: 250 mls/hr Acetaminophen (Tylenol Tablet) 650 mg PO Q6H PRN; Protocol PRN Reason: Mild Pain or Fever above 100.4 Stop: 09/08/16 16:59 Albuterol/Ipratropium (Duoneb) 3 ml NEB RTQ6 DANO Stop: 09/08/16 16:59 Last Admin: 08/27/16 13:33 Dose: 3 ml Benzonatate (Tessalon) 100 mg PO TID PRN PRN Reason: Cough - First Option Stop: 09/08/16 16:59 Last Admin: 08/26/16 03:15 Dose: 100 mg Ceftriaxone Sodium 1 gm/ (Dextrose) 100 mls @ 100 mls/hr IV Q24H [facility]ANO Stop: 09/02/16 17:59 Last Admin: 08/26/16 16:35 Dose: 100 mls/hr Enoxaparin Sodium (Lovenox) 40 mg SQ 1800 DANO Stop: 09/08/16 20:59 Last Admin: 08/26/16 16:34 Dose: 40 mg Guaifenesin/Dextromethorphan (Robitussin Dm) 10 ml PO Q6H PRN PRN Reason: Cough - Alternative Stop: 09/08/16 16:59 Last Admin: 08/27/16 05:51 Dose: 10 ml Levalbuterol HCl (Xopenex 1.25 Mg) 1.25 mg NEB Q2H PRN PRN Reason: Wheezing Stop: 09/08/16 16:59 Lorazepam (Ativan) 1 mg IV Q4H PRN PRN Reason: Anxiety Stop: 09/09/16 16:59 Memantine (Namenda) 10 mg PO BID DANO Stop: 09/09/16 08:59 Last Admin: 08/27/16 09:50 Dose: 10 mg Methylprednisolone Sodium Succinate (Solu-Medrol) 60 mg IV Q6H DANO Stop: 09/09/16 00:00 Last Admin: 08/27/16 11:56 Dose: 60 mg Ondansetron HCl (Zofran) 4 mg IV Q6H PRN PRN Reason: Nausea/Vomiting - First Option Stop: 09/08/16 16:59 Roflumilast (Daliresp) 500 mcg PO DAILY [facility]ANO Stop: 09/09/16 08:59 Last Admin: 08/27/16 09:50 Dose: 500 mcg Temazepam (Restoril) 15 mg PO 2100,2200 PRN PRN Reason: Sleep or Insomnia Stop: 09/08/16 16:59 Furosemide (Lasix) 20 mg PO DAILY DANO Stop: 09/09/16 08:59 Last Admin: 08/28/16 07:32 Dose: 20 mg Potassium Chloride/Sodium Chloride (Normal Saline-Kcl 20 Meq Per 1000 Ml) 1, 000 mls @ 100 mls/hr IV Q10H DANO Stop: 09/09/16 14:59 Last Admin: 08/28/16 04:50 Dose: 100 mls/hr - Assessment/Plan (1) Acute and chronic respiratory failure with hypoxia Acute J96.21 - ACUTE AND CHRONIC RESPIRATORY FAILURE WITH HYPOXIA Comment/Plan: Patient is on Rocephin and Zithromax and also on Solu-Medrol 60 mg IV q.6 hours I would continue that for now along with DVT and GI prophylaxis oxygen nebulizers and BiPAP patient has been on having off and on episodes of wheezing and tightness in her chest her chest x-ray shows right hilar fullness which was improved yesterday and is worse today would go ahead and get a CT scan of the chest today to further evaluate that patient's long-term prognosis is guarded would follow the patient closely repeat a blood gas in the morning (2) Bacterial lobar pneumonia Acute J15.9 - UNSPECIFIED BACTERIAL PNEUMONIA (3) COPD exacerbation Acute J44.1 - CHRONIC OBSTRUCTIVE PULMONARY DISEASE W (ACUTE) EXACERBATION (4) Pulmonary fibrosis Acute J84.10 - PULMONARY FIBROSIS, UNSPECIFIED
[2016-08-28] MEDS ORDERED: Pharmacy Review for Metformin - IV Contrast Given SCH (10:00)
--- NOTE | 2016-08-28 11:21 | DIRPT ---
CLINICAL DATA: Cough. Evaluate pneumonia. Respiratory failure. History of lung cancer with prior radiation and chemotherapy. EXAM: CT CHEST WITH CONTRAST TECHNIQUE: Multidetector CT imaging of the chest was performed during intravenous contrast administration. CONTRAST: 80 cc of Isovue 370 COMPARISON: Chest radiograph of 08/28/2016. Most recent CT of 04/22/2016. FINDINGS: Mediastinum/Nodes: No supraclavicular adenopathy. left axillary node dissection. Advanced aortic and branch vessel atherosclerosis. Normal heart size, without pericardial effusion. Multivessel coronary artery atherosclerosis. No mediastinal or hilar adenopathy. Small hiatal hernia. Lungs/Pleura: No pleural fluid. Mild motion degradation throughout. Severe centrilobular emphysema. Left lower lobe 4 mm nodule on image 41/series 4 was present on the prior exam and can be considered benign. High superior segment right lower lobe nodule is also unchanged on image 15/ series 4. Similar appearance of presumed treatment effects within the anterior aspect of the right upper lobe. Right lower lobe scarring. Upper abdomen: Normal imaged portions of the liver, spleen. Incompletely imaged left larger than right adrenal nodules, likely adenomas. The left-sided nodule measures 1.8 cm. Musculoskeletal: No acute osseous abnormality. IMPRESSION: 1. Mildly motion degraded exam. 2. Similar advanced centrilobular emphysema with presumed treatment effects in the anterior right upper lobe. 3. Atherosclerosis, including within the coronary arteries. 4. Similar bilateral adrenal adenomas. Electronically Signed By: Shay Rivas M.D. On: 08/28/2016 11:18
--- NOTE | 2016-08-28 12:48 | GENMEDPROG ---
Chief Complaint: COPD exacerbation Subjective Note: Still with significant cough, dyspnea on exertion. Denies any chest pain or fevers. Notes Reviewed: Yes: Events from last night noted and discussed with Clinical Staff Current Medication List: Reviewed DVT Prophylaxis: Yes - Physical Examination Vital Signs and I&O: Last Vital Signs Temp 98.0 F 08/28/16 07:51 Pulse 121 H 08/28/16 12:00 Resp 22 08/28/16 12:00 BP 131/88 08/28/16 12:00 Pulse Ox 90 L 08/28/16 12:00 Oxygen Pulse Oxygen Saturation 90 O2 Device Nasal Cannula Oxygen Flow Rate 5 Fraction of Inspired Oxygen ( 40 FIO2) Intake & Output 08/26/16 08/27/16 08/28/16 08/29/16 06:59 06:59 06:59 06:59 Intake Total 2449 2918 200 Output Total 400 1300 2400 920 Balance -400 1149 518 -720 Patient's weight 83.659 kg 89.584 kg General: Alert, Oriented x3, Mild distress HEENT: EOMI (Sclera white) Neck: Normal Trachea alignment, Normal inspection Lymphatics: Normal (no adenopathy) Respiratory: Accessory Muscle Use, Diminished, Rhonchi, Wheezes Cardiovascular: Regular rate, No Gallops,Rubs/Murmurs GI: Normal bowel sounds, Soft, Non tender (non distended) Extremities/Musculoskeletal: Other (Normal Tone). negative: Edema, Cyanosis Skin: No rashes, No significant lesion Lab/DI/Studies Reviewed: Laboratory Tests 08/28/16 08/28/16 08/28/16 05:20 05:40 05:40 WBC 7.6 Hgb 10.3 L Hct 31.7 L pH 7.380 pCO2 47.0 H pO2 112.0 H Potassium 4.4 BUN 23 H Creatinine 0.70 - Assessment (1) Acute and chronic respiratory failure with hypoxia Acute J96.21 - ACUTE AND CHRONIC RESPIRATORY FAILURE WITH HYPOXIA Comment/ Plan: PO2 is low at 59 on 4L, which is her basal rate of home oxygen. Plan: She was admitted to the hospital for COPD exacerbation and bacterial pneumonia. Patient initially placed on Ventimask 50%, increased as needed. She is now titrated down to 5 liters/minute nasal cannula oxygen.. Continue BiPAP at night. Pulmologist Dr. Araujo consulted and following. CT scan of the chest was performed this morning, with continued emphysematous changes but no consolidation. (2) Bacterial lobar pneumonia Acute J15.9 - UNSPECIFIED BACTERIAL PNEUMONIA Comment/Plan: Pneumonia. Severe. Requiring continuous oxygen support. Type: Community acquired pneumonia. Criteria for diagnosis: Chest x-ray suggestive of pneumonia, rhonchi on physical exam. Likely bacterial. Plan: Sputum culture has been ordered. Treat with IV ceftriaxone and IV azithromycin. Monitor oxygen saturation levels. (3) COPD exacerbation Acute J44.1 - CHRONIC OBSTRUCTIVE PULMONARY DISEASE W (ACUTE) EXACERBATION Comment/Plan: COPD exacerbation, severe. Plan: Nebs of Duoneb q 6 hours scheduled and albuterol q 2 hours prn. Sputum culture ordered. IV ceftriaxone and IV azithromycin. IV methylprednisolone. Continuous oxygen support. Keep sats below 95% due to COPD. (4) Pulmonary fibrosis Acute J84.10 - PULMONARY FIBROSIS, UNSPECIFIED Comment/Plan: Acute on chronic issue. Plan: Consulted vice squad police officer, Dr. Araujo.
[2016-08-28] MEDS: AZITHROMYCIN 500 MG in D5W 250 ML IV SCH (15:09)
[2016-08-28] MEDS: BENZONATATE 100 MG PERLES PO PRN (15:36)
[2016-08-28] MEDS: CEFTRIAXONE 1 GM in D5W 100 ML IV SCH (17:28)
[2016-08-28] MEDS: ENOXAPARIN 40 MG/0.4 ML PFS SQ SCH (17:28)
[2016-08-28] MEDS: GUAIFEN 100 MG-DEXTROMETH 10 MG PER 5 ML PO PRN (21:50)
[2016-08-29] MEDS: Albuterol/Ipratropium Neb 3 ML NEB NEB SCH ×4 (01:50→19:47)
[2016-08-29 02:57] LABS: BLOOD UREA NITROGEN 23 MG/DL (7-17); CALCIUM 8.4 MG/DL (8.4-10.2); CALCULATED OSMOLALITY 273 MOs/Kg (270-290); CHLORIDE 106 mEq/L (98-107); GLUCOSE 112 mg/dL (70-99); SODIUM LEVEL 139 mEq/L (137-146)
[2016-08-29 05:07] LABS: ALLEN'S TEST PASS; BEb 2.7 (+/- 2); TCO2 27.3 MMOL/L (23-27)
[2016-08-29 05:11] LABS: ABG Draw Site Left Radial
[2016-08-29] MEDS: NS/KCl 20 mEq 1,000 ML IV SCH ×2 (05:23→13:16)
[2016-08-29] MEDS: METHYLPREDNISOLONE 125 MG/2 ML VIAL IV SCH ×3 (05:23→20:35)
[2016-08-29] MEDS: GUAIFEN 100 MG-DEXTROMETH 10 MG PER 5 ML PO PRN ×2 (06:38→23:05)
[2016-08-29] MEDS: MEMANTINE HCL 10 MG TAB PO SCH ×2 (08:00→20:34)
[2016-08-29] MEDS: FUROSEMIDE 20 MG TAB PO SCH (08:01)
[2016-08-29] MEDS: ROFLUMILAST 500 MCG TAB PO SCH (08:01)
--- NOTE | 2016-08-29 08:50 | PCM.PULM ---
Chief Complaint: Uneventful overnight with no acute distress Breathing is improving slowly. Still has some SOB,CURTIS,cough and wheeze. On oxygen and wears BIPAP at night Current medication list and notes reviewed:yes, Events from last night noted and discussed with Clinical Staff DVT prophylaxis:yes - Physical Examination Vital Signs and I&O: Last Vital Signs Temp 97.8 F 08/29/16 07:41 Pulse 105 08/29/16 07:41 Resp 20 08/29/16 07:41 BP 127/68 08/29/16 07:41 Pulse Ox 98 08/29/16 08:14 Oxygen Pulse Oxygen Saturation 98 O2 Device Nasal Cannula Oxygen Flow Rate 5 Fraction of Inspired Oxygen ( 40 FIO2) Intake & Output 08/26/16 08/27/16 08/28/16 08/29/16 23:59 23:59 23:59 23:59 Intake Total 1065 3112 3150 1276 Output Total 1300 2500 2095 650 Balance -512 639 4014 626 Patient's weight 83.659 kg 89.584 kg 89.471 kg General: Alert, Oriented x3, Mild distress, Obese, Fatigue (improved) Respiratory: Accessory Muscle Use, Diminished, Rhonchi, Tachypnea, Wheezes ( improved) Cardiovascular: Regular rate, Regular rate and rhythm, Normal S1, No Gallops, Rubs/Murmurs, Normal S2, Good Pedal Pulses, Other (sinus tachycardia at rate of 110 on exertions) GI: Normal bowel sounds, Soft, Non tender, No hepatospenomegaly, No masses, Obese Extremities/Musculoskeletal: Normal pulses, Edema Skin: Warm,Dry and Intact, No rashes, No breakdown, No significant lesion Neurological: Normal Steady Gait, Normal speech, Strength at 5/5 X4 ext, Normal tone, Cranial nerves 3-12 NL Psych/Mental Status: Appropriate, Anxious (improved) Result Diagrams: 08/29/16 01:50 08/29/16 01:50 Labs (last 24 hours): Laboratory Results - last 24 hr 08/29/16 08/29/16 08/29/16 01:50 01:50 05:00 WBC 5.9 RBC 4.00 L Hgb 10.5 L Hct 32.4 L MCV 81 MCH 26.2 L MCHC 32.4 L RDW 16.0 H Plt Count 184 MPV 9.0 Puncture Site Left radial pH 7.470 H pCO2 36.0 pO2 60.0 L HCO3 26.2 H Total CO2 27.3 H Base Excess 2.7 H FiO2 % 5 lpm nc Specimen Drawn By Kaytr Sodium 139 Potassium 4.3 Chloride 106 Carbon Dioxide 29 Anion Gap 8 BUN 23 H Creatinine 0.70 Estimated GFR (MDRD) > 60 Glucose 112 H Calculated Osmolality 273 Calcium 8.4 Lab/DI/Studies Reviewed: EKG: NSR to Sinus tachycardia rate of 110/min CT CHEST 07/28/16 CT scan of the chest was seen personally patient seems to have diffuse bilateral emphysema and bibasilar right more than left pulmonary fibrosis Medications Acetaminophen (Tylenol Tablet) 650 mg PO Q6H PRN; Protocol PRN Reason: Mild Pain or Fever above 100.4 Stop: 09/08/16 16:59 Albuterol/Ipratropium (Duoneb) 3 ml NEB RTQ6 DANO Stop: 09/08/16 16:59 Last Admin: 08/27/16 13:33 Dose: 3 ml Benzonatate (Tessalon) 100 mg PO TID PRN PRN Reason: Cough - First Option Stop: 09/08/16 16:59 Last Admin: 08/26/16 03:15 Dose: 100 mg Ceftriaxone Sodium 1 gm/ (Dextrose) 100 mls @ 100 mls/hr IV Q24H [facility]ANO Stop: 09/02/16 17:59 Last Admin: 08/26/16 16:35 Dose: 100 mls/hr Enoxaparin Sodium (Lovenox) 40 mg SQ 1800 DANO Stop: 09/08/16 20:59 Last Admin: 08/26/16 16:34 Dose: 40 mg Furosemide (Lasix) 20 mg PO DAILY DANO Stop: 09/09/16 08:59 Last Admin: 08/27/16 09:50 Dose: 20 mg Guaifenesin/Dextromethorphan (Robitussin Dm) 10 ml PO Q6H PRN PRN Reason: Cough - Alternative Stop: 09/08/16 16:59 Last Admin: 08/27/16 05:51 Dose: 10 ml Levalbuterol HCl (Xopenex 1.25 Mg) 1.25 mg NEB Q2H PRN PRN Reason: Wheezing Stop: 09/08/16 16:59 Lorazepam (Ativan) 1 mg IV Q4H PRN PRN Reason: Anxiety Stop: 09/09/16 16:59 Memantine (Namenda) 10 mg PO BID DANO Stop: 09/09/16 08:59 Last Admin: 08/27/16 09:50 Dose: 10 mg Methylprednisolone Sodium Succinate (Solu-Medrol) 60 mg IV Q6H DANO Stop: 09/09/16 00:00 Last Admin: 08/27/16 11:56 Dose: 60 mg Ondansetron HCl (Zofran) 4 mg IV Q6H PRN PRN Reason: Nausea/Vomiting - First Option Stop: 09/08/16 16:59 Roflumilast (Daliresp) 500 mcg PO DAILY DANO Stop: 09/09/16 08:59 Last Admin: 08/27/16 09:50 Dose: 500 mcg Temazepam (Restoril) 15 mg PO 2100,2200 PRN PRN Reason: Sleep or Insomnia Stop: 09/08/16 16:59 Furosemide (Lasix) 20 mg PO DAILY DANO Stop: 09/09/16 08:59 Last Admin: 08/28/16 07:32 Dose: 20 mg Potassium Chloride/Sodium Chloride (Normal Saline-Kcl 20 Meq Per 1000 Ml) 1, 000 mls @ 100 mls/hr IV Q10H DANO Stop: 09/09/16 14:59 Last Admin: 08/28/16 04:50 Dose: 100 mls/hr - Assessment/Plan (1) Acute and chronic respiratory failure with hypoxia Acute J96.21 - ACUTE AND CHRONIC RESPIRATORY FAILURE WITH HYPOXIA Comment/Plan: I would continue Rocephin and Zithromax and would cut down Solu-Medrol 60 mg IV q.6 hours to 40 mg IV q.8 hours I would continue that for now along with DVT and GI prophylaxis oxygen nebulizers and BiPAP CT scan of the chest was clear in the right hilar area however patient seems to have very severe emphysema and bibasilar pulmonary fibrosis right more than left (2) Bacterial lobar pneumonia Acute J15.9 - UNSPECIFIED BACTERIAL PNEUMONIA Comment/Plan: Continue other supportive care on this patient with the lower Rocephin and Zithromax and continue full supportive care (3) COPD exacerbation Acute J44.1 - CHRONIC OBSTRUCTIVE PULMONARY DISEASE W (ACUTE) EXACERBATION Comment/Plan: No change in current treatment patient still remains significantly hypoxic and tachypneic (4) Pulmonary fibrosis Acute J84.10 - PULMONARY FIBROSIS, UNSPECIFIED Comment/Plan: Unchanged clinically at this time no change in the treatment
--- NOTE | 2016-08-29 10:01 | GENMEDPROG ---
Chief Complaint: COPD exacerbation Subjective Note: Doing well, no acute complaints. She is feeling slightly more comfortable today. Notes Reviewed: Yes: Events from last night noted and discussed with Clinical Staff Current Medication List: Reviewed DVT Prophylaxis: Yes - Physical Examination Vital Signs and I&O: Last Vital Signs Temp 97.8 F 08/29/16 07:41 Pulse 105 08/29/16 07:41 Resp 20 08/29/16 07:41 BP 127/68 08/29/16 07:41 Pulse Ox 98 08/29/16 08:14 Oxygen Pulse Oxygen Saturation 98 O2 Device Nasal Cannula Oxygen Flow Rate 5 Fraction of Inspired Oxygen ( 40 FIO2) Intake & Output 08/27/16 08/28/16 08/29/16 08/30/16 06:59 06:59 06:59 06:59 Intake Total 2449 2918 3236 220 Output Total 1300 2400 2545 Balance 1149 518 691 220 Patient's weight 89.584 kg 89.471 kg General: Alert, Oriented x3, Mild distress HEENT: EOMI (Sclera white) Neck: Normal Trachea alignment, Normal inspection Lymphatics: Normal (no adenopathy) Respiratory: Accessory Muscle Use, Diminished Cardiovascular: Regular rate, No Gallops,Rubs/Murmurs GI: Normal bowel sounds, Soft, Non tender (non distended) Extremities/Musculoskeletal: Other (Normal Tone). negative: Edema, Cyanosis Skin: No rashes, No significant lesion Lab/DI/Studies Reviewed: Laboratory Tests 08/29/16 08/29/16 08/29/16 01:50 01:50 05:00 Hgb 10.5 L pH 7.470 H pCO2 36.0 pO2 60.0 L BUN 23 H Creatinine 0.70 - Assessment (1) Acute and chronic respiratory failure with hypoxia Acute J96.21 - ACUTE AND CHRONIC RESPIRATORY FAILURE WITH HYPOXIA Comment/ Plan: PO2 is low at 59 on 4L, which is her basal rate of home oxygen. Plan: She was admitted to the hospital for COPD exacerbation and bacterial pneumonia. Patient initially placed on Ventimask 50%, increased as needed. She is now titrated down to 5 liters/minute nasal cannula oxygen.. Continue BiPAP at night. Pulmologist Dr. Araujo consulted and following. CT scan of the chest was performed this morning, with continued emphysematous changes but no consolidation. (2) Bacterial lobar pneumonia Acute J15.9 - UNSPECIFIED BACTERIAL PNEUMONIA Comment/Plan: Pneumonia. Severe. Requiring continuous oxygen support. Type: Community acquired pneumonia. Criteria for diagnosis: Chest x-ray suggestive of pneumonia, rhonchi on physical exam. Likely bacterial. Plan: Sputum culture has been ordered. Treat with IV ceftriaxone and IV azithromycin. Monitor oxygen saturation levels. (3) COPD exacerbation Acute J44.1 - CHRONIC OBSTRUCTIVE PULMONARY DISEASE W (ACUTE) EXACERBATION Comment/Plan: COPD exacerbation, severe. Now appears to be improving overall Plan: Nebs of Duoneb q 6 hours scheduled and albuterol q 2 hours prn. Sputum culture ordered. IV ceftriaxone and IV azithromycin. IV methylprednisolone. Continuous oxygen support. Keep sats below 95% due to COPD. (4) Pulmonary fibrosis Acute J84.10 - PULMONARY FIBROSIS, UNSPECIFIED Comment/Plan: Acute on chronic issue. Plan: Consulted simulation educator, Dr. Araujo. - Plan Overall, the patient has been slow to improve, but is finally doing so. She is now on 5 L nasal cannula oxygen, while she is usually on 4 L at rest at home. Pulmonary exam today is much improved, without any wheezing or rhonchi. As she is marginally improving, will cut back on her IV steroids today, continue other treatments and supportive care.
[2016-08-29] MEDS: AZITHROMYCIN 500 MG in D5W 250 ML IV SCH (17:11)
[2016-08-29] MEDS: ENOXAPARIN 40 MG/0.4 ML PFS SQ SCH (17:15)
[2016-08-29] MEDS: CEFTRIAXONE 1 GM in D5W 100 ML IV SCH (19:08)
[2016-08-30] MEDS: Albuterol/Ipratropium Neb 3 ML NEB NEB SCH ×4 (01:50→19:42)
[2016-08-30] MEDS: NS/KCl 20 mEq 1,000 ML IV SCH ×2 (02:20→08:58)
[2016-08-30 03:26] LABS: MPV 8.9 fL (7.4-10.4)
[2016-08-30 03:31] LABS: BLOOD UREA NITROGEN 27 MG/DL (7-17); CALCIUM 8.6 MG/DL (8.4-10.2); CALCULATED OSMOLALITY 279 MOs/Kg (270-290); CHLORIDE 105 mEq/L (98-107); GLUCOSE 117 mg/dL (70-99); SODIUM LEVEL 142 mEq/L (137-146)
[2016-08-30] MEDS: METHYLPREDNISOLONE 125 MG/2 ML VIAL IV SCH ×3 (05:02→21:22)
[2016-08-30] MEDS: ROFLUMILAST 500 MCG TAB PO SCH (08:58)
[2016-08-30] MEDS: MEMANTINE HCL 10 MG TAB PO SCH ×2 (08:58→21:22)
[2016-08-30] MEDS: FUROSEMIDE 20 MG TAB PO SCH (08:58)
[2016-08-30] MEDS: ACETAMINOPHEN 325 MG/TAB TABLET PO PRN (08:59)
--- NOTE | 2016-08-30 09:17 | GENMEDPROG ---
Chief Complaint: COPD exacerbation Subjective Note: Stable, no acute events overnight. Still with some dyspnea with exertion, but almost at her baseline oxygen at rest. Discussed with respiratory therapy this morning at the bedside. Notes Reviewed: Yes: Events from last night noted and discussed with Clinical Staff Current Medication List: Reviewed Currently: Reports: Cough DVT Prophylaxis: Yes - Physical Examination Vital Signs and I&O: Last Vital Signs Temp 97.9 F 08/30/16 07:47 Pulse 117 08/30/16 09:07 Resp 20 08/30/16 07:47 BP 131/68 08/30/16 07:47 Pulse Ox 96 08/30/16 08:25 Oxygen Pulse Oxygen Saturation 96 O2 Device Nasal Cannula Oxygen Flow Rate 5 Fraction of Inspired Oxygen ( 35 FIO2) Intake & Output 08/28/16 08/29/16 08/30/16 08/31/16 06:59 06:59 06:59 06:59 Intake Total 2918 3236 2738 Output Total 2400 2545 1572 200 Balance 307 123 4191 -200 Patient's weight 89.584 kg 89.471 kg 90.775 kg General: Alert, Oriented x3, Mild distress HEENT: EOMI (Sclera white) Neck: Normal Trachea alignment, Normal inspection Lymphatics: Normal (no adenopathy) Respiratory: Accessory Muscle Use, Diminished, Other (No rales or rhonchi, much improved physical exam.) Cardiovascular: Regular rate, No Gallops,Rubs/Murmurs GI: Normal bowel sounds, Soft, Non tender (non distended) Extremities/Musculoskeletal: Other (Normal Tone). negative: Edema, Cyanosis Skin: No rashes, No significant lesion Lab/DI/Studies Reviewed: Laboratory Tests 08/30/16 08/30/16 02:35 02:35 WBC 5.9 Hgb 10.7 L Hct 33.0 L Potassium 3.8 BUN 27 H Creatinine 0.80 - Assessment (1) Acute and chronic respiratory failure with hypoxia Acute J96.21 - ACUTE AND CHRONIC RESPIRATORY FAILURE WITH HYPOXIA Comment/ Plan: PO2 is low at 59 on 4L, which is her basal rate of home oxygen. Plan: She was admitted to the hospital for COPD exacerbation and bacterial pneumonia. Patient initially placed on Ventimask 50%, increased as needed. She is now titrated down to 5 liters/minute nasal cannula oxygen.. Continue BiPAP at night. Pulmologist Dr. Araujo consulted and following. CT scan of the chest was performed this morning, with continued emphysematous changes but no consolidation. (2) Bacterial lobar pneumonia Acute J15.9 - UNSPECIFIED BACTERIAL PNEUMONIA Comment/Plan: Pneumonia. Severe. Requiring continuous oxygen support. Type: Community acquired pneumonia. Criteria for diagnosis: Chest x-ray suggestive of pneumonia, rhonchi on physical exam. Likely bacterial. Plan: Sputum culture has been ordered. Treat with IV ceftriaxone and IV azithromycin. Monitor oxygen saturation levels. (3) COPD exacerbation Acute J44.1 - CHRONIC OBSTRUCTIVE PULMONARY DISEASE W (ACUTE) EXACERBATION Comment/Plan: COPD exacerbation, severe. Now appears to be improving overall Plan: Nebs of Duoneb q 6 hours scheduled and albuterol q 2 hours prn. Sputum culture ordered. IV ceftriaxone and IV azithromycin. IV methylprednisolone. Continuous oxygen support. Keep sats below 95% due to COPD. (4) Pulmonary fibrosis Acute J84.10 - PULMONARY FIBROSIS, UNSPECIFIED Comment/Plan: Acute on chronic issue. Plan: Consulted project/production manager imaging, Dr. Araujo. - Plan Continue present care patient is improving gradually. Continue to wean IV steroids as able. Pulmonary is following. She will be ready for discharge to subacute nursing facility in 1-2 days.
[2016-08-30] MEDS: ENOXAPARIN 40 MG/0.4 ML PFS SQ SCH (16:07)
[2016-08-30] MEDS: AZITHROMYCIN 500 MG in D5W 250 ML IV SCH (16:07)
[2016-08-30] MEDS: CEFTRIAXONE 1 GM in D5W 100 ML IV SCH (17:20)
[2016-08-31] MEDS: Albuterol/Ipratropium Neb 3 ML NEB NEB SCH ×3 (01:30→14:43)
[2016-08-31] MEDS: METHYLPREDNISOLONE 125 MG/2 ML VIAL IV SCH ×2 (05:01→14:22)
[2016-08-31 05:20] LABS: MPV 8.7 fL (7.4-10.4)
[2016-08-31 05:38] LABS: BLOOD UREA NITROGEN 22 MG/DL (7-17); CALCIUM 8.3 MG/DL (8.4-10.2); CALCULATED OSMOLALITY 270 MOs/Kg (270-290); CHLORIDE 102 mEq/L (98-107); GLUCOSE 113 mg/dL (70-99); SODIUM LEVEL 138 mEq/L (137-146)
--- NOTE | 2016-08-31 08:27 | PCM.PULM ---
Chief Complaint: patient sitting at bedside having breathing treatment. Patient not feeling well still has a complaint of dyspnea with any movement,CURTIS,cough, sputum. Current medication list reviewed:yes Notes reviewed:yes, Events from last night noted and discussed with Clinical Staff DVT prophylaxis:yes - Physical Examination Vital Signs and I&O: Last Vital Signs Temp 97.8 F 08/31/16 05:02 Pulse 97 08/31/16 06:13 Resp 20 08/31/16 05:02 BP 139/71 08/31/16 05:02 Pulse Ox 95 08/31/16 05:02 Oxygen Pulse Oxygen Saturation 95 O2 Device Nasal Cannula Oxygen Flow Rate 5 Fraction of Inspired Oxygen ( 35 FIO2) Intake & Output 08/28/16 08/29/16 08/30/16 08/31/16 23:59 23:59 23:59 23:59 Intake Total 3150 2910 3047 100 Output Total 2095 2071 2851 150 Balance 1055 839 196 -50 Patient's weight 89.584 kg 89.471 kg 90.775 kg 88.541 kg General: Alert, Oriented x3, Cooperative, Mild distress, Obese Respiratory: Diminished, Rhonchi, Wheezes (mild) Cardiovascular: Regular rate, Regular rate and rhythm, Normal S1, No Gallops, Rubs/Murmurs, Normal S2, Good Pedal Pulses (DP pulses 2+ bilaterally) GI: Normal bowel sounds, Soft, Non tender, No masses, Obese Extremities/Musculoskeletal: Normal pulses, Swelling Skin: Warm,Dry and Intact, No rashes, No significant lesion Neurological: Normal Steady Gait, Normal speech, Normal tone, Cranial nerves 3- 12 NL Psych/Mental Status: Normal Affect, Cooperative Result Diagrams: 08/31/16 04:55 08/31/16 04:55 Labs (last 24 hours): Laboratory Results - last 24 hr 08/30/16 08/31/16 08/31/16 20:01 04:55 04:55 WBC 7.6 RBC 4.23 Hgb 11.1 L Hct 33.9 L MCV 80 L MCH 26.2 L MCHC 32.7 L RDW 16.6 H Plt Count 192 MPV 8.7 Sodium 138 Potassium 3.8 Chloride 102 Carbon Dioxide 31 Anion Gap 9 BUN 22 H Creatinine 0.70 Estimated GFR (MDRD) > 60 Glucose 113 H POC Capillary Glucose 133 H Calculated Osmolality 270 Calcium 8.3 L Lab/DI/Studies Reviewed: EKG: NSR to Sinus tachycardia at rate of 110/min, NO ST wave changes noted Medications: Azithromycin 500 mg/ Dextrose 250 mls @ 250 mls/hr IV Q24H [facility] Stop: 08/31/16 15:59 Last Admin: 08/26/16 15:11 Dose: 250 mls/hr Acetaminophen (Tylenol Tablet) 650 mg PO Q6H PRN; Protocol PRN Reason: Mild Pain or Fever above 100.4 Stop: 09/08/16 16:59 Albuterol/Ipratropium (Duoneb) 3 ml NEB RTQ6 [facility] Stop: 09/08/16 16:59 Last Admin: 08/27/16 13:33 Dose: 3 ml Benzonatate (Tessalon) 100 mg PO TID PRN PRN Reason: Cough - First Option Stop: 09/08/16 16:59 Last Admin: 08/26/16 03:15 Dose: 100 mg Ceftriaxone Sodium 1 gm/ (Dextrose) 100 mls @ 100 mls/hr IV Q24H [facility] Stop: 09/02/16 17:59 Last Admin: 08/26/16 16:35 Dose: 100 mls/hr Enoxaparin Sodium (Lovenox) 40 mg SQ 1800 [facility] Stop: 09/08/16 20:59 Last Admin: 08/26/16 16:34 Dose: 40 mg Guaifenesin/Dextromethorphan (Robitussin Dm) 10 ml PO Q6H PRN PRN Reason: Cough - Alternative Stop: 09/08/16 16:59 Last Admin: 08/27/16 05:51 Dose: 10 ml Levalbuterol HCl (Xopenex 1.25 Mg) 1.25 mg NEB Q2H PRN PRN Reason: Wheezing Stop: 09/08/16 16:59 Lorazepam (Ativan) 1 mg IV Q4H PRN PRN Reason: Anxiety Stop: 09/09/16 16:59 Memantine (Namenda) 10 mg PO BID [facility] Stop: 09/09/16 08:59 Last Admin: 08/27/16 09:50 Dose: 10 mg Ondansetron HCl (Zofran) 4 mg IV Q6H PRN PRN Reason: Nausea/Vomiting - First Option Stop: 09/08/16 16:59 Roflumilast (Daliresp) 500 mcg PO DAILY [facility] Stop: 09/09/16 08:59 Last Admin: 08/27/16 09:50 Dose: 500 mcg Temazepam (Restoril) 15 mg PO 2100,2200 PRN PRN Reason: Sleep or Insomnia Stop: 09/08/16 16:59 Furosemide (Lasix) 20 mg PO DAILY [facility] Stop: 09/09/16 08:59 Last Admin: 08/30/16 08:58 Dose: 20 mg Methylprednisolone Sodium Succinate (Solu-Medrol) 60 mg IV Q8 [facility] Stop: 09/12/16 13:59 Last Admin: 08/31/16 05:01 Dose: 60 mg - Assessment/Plan (1) Acute and chronic respiratory failure with hypoxia Acute J96.21 - ACUTE AND CHRONIC RESPIRATORY FAILURE WITH HYPOXIA Comment/Plan: Improving. Would continue current medication therapy with antibiotic, steroids, duo nebulizer treatment, GI/DVT prophylaxis. Patient may be going to [facility] soon for rehab and will follow up with patient with in one week after being discharged. (2) Bacterial lobar pneumonia Acute J15.9 - UNSPECIFIED BACTERIAL PNEUMONIA Comment/Plan: Continue with the course of antibiotics and continue full supportive care (3) COPD exacerbation Acute J44.1 - CHRONIC OBSTRUCTIVE PULMONARY DISEASE W (ACUTE) EXACERBATION Comment/Plan: Improving slowly. Would continue steroids, nebulizer treatment, supplemental oxygen and BIPAP prn (4) Pulmonary fibrosis Acute J84.10 - PULMONARY FIBROSIS, UNSPECIFIED Comment/Plan: Unchanged clinically at this time no change in the treatment
[2016-08-31] MEDS: FUROSEMIDE 20 MG TAB PO SCH (10:03)
[2016-08-31] MEDS: ROFLUMILAST 500 MCG TAB PO SCH (10:03)
[2016-08-31] MEDS: MEMANTINE HCL 10 MG TAB PO SCH (10:03)
--- NOTE | 2016-08-31 10:26 | PCM.DCS92 ---
- Final/Secondary Discharge Diagnosis (1) Acute and chronic respiratory failure with hypoxia Acute J96.21 - ACUTE AND CHRONIC RESPIRATORY FAILURE WITH HYPOXIA Present on Admission: Yes Comment: Continue O2 nebs and pulmonary toilet. Advance activity as tolerated (2) COPD exacerbation Acute J44.1 - CHRONIC OBSTRUCTIVE PULMONARY DISEASE W (ACUTE) EXACERBATION Present on Admission: Yes Comment: Continue nebulized bronchodilators and prednisone taper. (3) Bacterial lobar pneumonia Acute J15.9 - UNSPECIFIED BACTERIAL PNEUMONIA Present on Admission: Yes Comment: Continue and finish course of Levaquin. (4) Depression Chronic F32.9 - MAJOR DEPRESSIVE DISORDER, SINGLE EPISODE, UNSPECIFIED Present on Admission: Yes unspecified F32.9 - Major depressive disorder, single episode, unspecified Comment: Continue medications and monitor (5) Dementia Chronic F03.90 - UNSPECIFIED DEMENTIA WITHOUT BEHAVIORAL DISTURBANCE Alzheimer's disease late-onset without behavioral disturbance G30.1 - Alzheimer's disease with late onset Comment: Stable currently. Continue medications and monitor. Discharge Disposition: Care Home Facility Discharge Condition: Improved Cognitive Discharge Status: Unimpaired Fuctional Discharge Status: Walker Assistance, Fall Risk, Deconditioning, Dyspnea with ambulation Physician Follow up/Referrals: Anne Rosario PA [Primary Care Provider] - One Week Home Medications / New Prescriptions: New Furosemide [Lasix] 40 mg PO BID #120 tab Guaifenesin [Mucinex] 1,200 mg PO BID #20 tbmp.12hr Levofloxacin [Levaquin] 750 mg PO DAILY #7 tablet Prednisone 10 mg PO DAILY #30 tab.ds.pk Continue Roflumilast [Daliresp] 500 mcg PO DAILY Citalopram Hydrobromide [Celexa] 20 mg PO DAILY Ipratropium/Albuterol Sulfate [Combivent Respimat] 1 puff INH RTQ6 Nebulizer [Erapid Nebulizer] 1 each MC .UNKNOWN Levalbuterol [Xopenex 1.25 mg] 1.25 mg INH QID Tiotropium [place] [Spiriva] 18 mcg INH DAILY Memantine HCl [Namenda Xr] 28 mg PO DAILY Discontinued Furosemide [Lasix] 20 mg PO DAILY O2 Device: Nasal Cannula Oxygen to be used after Discharge: Continuous Additional Instructions: Accu-Cheks twice a day, standard sliding scale regular insulin. Diet at Discharge: Heart Healthy, Low Salt, 2200 Calorie, High Fiber Activity: As Tolerated, Limited Call Office For: Worsening Symptoms, Fever over 101 F Discontinue use of:: Alcohol, All Illegal Substances, All Types of Tobacco - DC Summary Notes Hospital Course Note:: Discharge summary on patient named CHLOE MACHUCA admitted [facility] 08[facility]16 by Nathan Caballero MD. Date of discharge is []. Patient has initially presented to emergency room on August 25 for evaluation of progressive worsening difficulties breathing cough and phlegm production. Patient reported chest tightness and wheezes as well. Please refer to the admission for further details. Upon arrival in ED patient was found to be in moderate respiratory distress hypoxic tachypneic and tachycardic. Initial chest x-ray showed bilateral emphysema surgical clips in left axilla, right perihilar and right upper lobe scarring and streaky airspace disease in the right base. Treatment supplemental O2 was continued, patient was admitted to monitor bed. Outpatient regimen for chronic medical conditions was continued. Treatment with IV antibiotics in the form of Rocephin and Zithromax was instituted. Due to severe bronchospasm with bronchorrhea patient required IV steroids and nebulized bronchodilators. Patient was seen consultation by her personal dispenser operator Dr. Araujo and pulmonary regimen was optimized. Her pulmonary status has slowly but progressively improved and stabilized. She was seen and evaluated with physical therapy and her activity level was gradually advanced. Due to severe and persistent weakness, problems with gait balance and transfers inpatient skilled physical therapy was recommended. It was felt that by August 31 patient has reached maximum benefit of inpatient therapy and in clinically stable improved condition she has been transferred to local senior living facility for PT OT and medical care. Total Time: 45 min . Code: 22325 (>30min.) - Physical Exam Vital Signs: Last Vital Signs Temp 97.7 F 08/31/16 09:04 Pulse 120 H 08/31/16 09:04 Resp 24 08/31/16 09:04 BP 120/58 L 08/31/16 09:04 Pulse Ox 94 08/31/16 09:04 Oxygen Pulse Oxygen Saturation 94 O2 Device Nasal Cannula Oxygen Flow Rate 5 Fraction of Inspired Oxygen ( 35 FIO2) Constitutional: Alert (Awake) Oriented to: Time, Person, Place - HEENT Head: Normal ( normocephalic) Eye: Normal (PERRL, EOMI, Sclera white) Oropharynx: Normal (Pharynx:Moist without exudate,Gums-no swelling) Tympanic Membrane: Normal ENT EAC: Normal TMJ: Normal Nose: No Symptoms Reported (septum midline) - Respiratory/Cardiovascular Respiratory: Diminished, Rhonchi, Other (No rales or rhonchi, much improved physical exam.) Cardiovascular: Normal, Systolic murmur - GI Auscultation: Normal (NABS) Palpation: Normal (Soft,No rebound or guarding, non distended) Tenderness: Non tender Ramirez's Sign: Negative - Exam Deferred: Yes - Musculoskeletal Back: Normal (Non-Tender) Extremities: Normal (Normal tone, Pulses 2+ No cyanosis or edema, FROM), Cyanosis, Edema - Integumentary Skin: Normal, Warm, Dry Lymphatics: Normal (no adenopathy) - Neurologic Memory Impaired: Normal Motor Function: Abnormal Cranial Nerve: Normal Cerebellar: Normal Mood Description: Normal, Anxious Perception: Normal - Other Exam Other Exam Findings: Allergies donepezil Allergy (Verified 08/25/16 15:28) Unknown oxycodone HCl [From Roxicet] Allergy (Verified 08/25/16 15:28) Unknown Last Vital Signs Temp 97.7 F 08/31/16 09:04 Pulse 120 H 08/31/16 09:04 Resp 24 08/31/16 09:04 BP 120/58 L 08/31/16 09:04 Pulse Ox 94 08/31/16 09:04 08/31/16 04:55 08/31/16 04:55 Abnormal Lab Results 08/30/16 08/31/16 08/31/16 20:01 04:55 04:55 Hgb 11.1 L Hct 33.9 L MCV 80 L MCH 26.2 L MCHC 32.7 L RDW 16.6 H BUN 22 H Glucose 113 H POC Capillary Glucose 133 H Calcium 8.3 L Discharge Home Medication List Citalopram Hydrobromide [Celexa] 20 mg PO DAILY 05/15/15 [History Confirmed ] Ipratropium/Albuterol Sulfate [Combivent Respimat] 1 puff INH RTQ6 05/15/15 [ History Confirmed 08/25/16] Nebulizer [Erapid Nebulizer] 1 each MC .UNKNOWN 05/15/15 [History Confirmed ] Roflumilast [Daliresp] 500 mcg PO DAILY 05/15/15 [History Confirmed 08/25/16] Levalbuterol [Xopenex 1.25 mg] 1.25 mg INH QID 03/24/16 [History Confirmed 08/25] Tiotropium [place] [Spiriva] 18 mcg INH DAILY 03/24/16 [History Confirmed ] Memantine HCl [Namenda Xr] 28 mg PO DAILY 08/25/16 [History Confirmed 08/25/16] Furosemide [Lasix] 40 mg PO BID #120 tab 08/31/16 [Rx] Guaifenesin [Mucinex] 1,200 mg PO BID #20 tbmp.12hr 08/31/16 [Rx] Levofloxacin [Levaquin] 750 mg PO DAILY #7 tablet 08/31/16 [Rx] Prednisone 10 mg PO DAILY #30 tab.ds.pk 08/31/16 [Rx] New Discharge Medications (Rx) Furosemide [Lasix] 40 mg PO BID #120 tab 08/31/16 [Rx] Guaifenesin [Mucinex] 1,200 mg PO BID #20 tbmp.12hr 08/31/16 [Rx] Levofloxacin [Levaquin] 750 mg PO DAILY #7 tablet 08/31/16 [Rx] Prednisone 10 mg PO DAILY #30 tab.ds.pk 08/31/16 [Rx] Home Medications Citalopram Hydrobromide [Celexa] 20 mg PO DAILY 05/15/15 Ipratropium/Albuterol Sulfate [Combivent Respimat] 1 puff INH RTQ6 05/15/15 Nebulizer [Erapid Nebulizer] 1 each MC .UNKNOWN 05/15/15 Roflumilast [Daliresp] 500 mcg PO DAILY 05/15/15 Levalbuterol [Xopenex 1.25 mg] 1.25 mg INH QID 03/24/16 Tiotropium [place] [Spiriva] 18 mcg INH DAILY 03/24/16 Memantine HCl [Namenda Xr] 28 mg PO DAILY 08/25/16 Furosemide [Lasix] 40 mg PO BID #120 tab 08/31/16 Guaifenesin [Mucinex] 1,200 mg PO BID #20 tbmp.12hr 08/31/16 Levofloxacin [Levaquin] 750 mg PO DAILY #7 tablet 08/31/16 Prednisone 10 mg PO DAILY #30 tab.ds.pk 08/31/16 Patient Name: CHLOE MACHUCA LOC: [facility] : 1940 AGE: 76 Order Date:08/28/16 Date of Service:10/09 Report # [id number] Ord Physician: Bishop Araujo MD Exam # [id number] Emergency Physician: Rubin Longoria MD Exam(s): [id number] CT/CT CHEST W/ CM CLINICAL DATA: Cough. Evaluate pneumonia. Respiratory failure. History of lung cancer with prior radiation and chemotherapy. EXAM: CT CHEST WITH CONTRAST TECHNIQUE: Multidetector CT imaging of the chest was performed during intravenous contrast administration. CONTRAST: 80 cc of Isovue 370 COMPARISON: Chest radiograph of 08/28/2016. Most recent CT of 04/22/2016. FINDINGS: Mediastinum/Nodes: No supraclavicular adenopathy. left axillary node dissection. Advanced aortic and branch vessel atherosclerosis. Normal heart size, without pericardial effusion. Multivessel coronary artery atherosclerosis. No mediastinal or hilar adenopathy. Small hiatal hernia. Lungs/Pleura: No pleural fluid. Mild motion degradation throughout. Severe centrilobular emphysema. Left lower lobe 4 mm nodule on image 41/series 4 was present on the prior exam and can be considered benign. High superior segment right lower lobe nodule is also unchanged on image 15/ series 4. Similar appearance of presumed treatment effects within the anterior aspect of the right upper lobe. Right lower lobe scarring. Upper abdomen: Normal imaged portions of the liver, spleen. Incompletely imaged left larger than right adrenal nodules, likely adenomas. The left-sided nodule measures 1.8 cm. Musculoskeletal: No acute osseous abnormality. IMPRESSION: 1. Mildly motion degraded exam. 2. Similar advanced centrilobular emphysema with presumed treatment effects in the anterior right upper lobe. 3. Atherosclerosis, including within the coronary arteries. 4. Similar bilateral adrenal adenomas. Electronically Signed By: Shay Rivas M.D. On: 08/28/2016 11:18 Electronically Signed By: Shay Rivas MD Electronically Signed Date/Time: [id number] Dictate Date/Time: 08/28/16 110 Technologist: Ines Zhong Transcribed By: Partha Transcribed Date/Time: 08/28/16 1118
[2016-08-31 13:01] VITALS: BP 126/66; PULSE 114; TEMP 98
== END 2016-08-31 15:01 | DRG 193 ==
LOC: ED 15:22 → PCU 18:20
PROVIDERS: ADMIT Internal Medicine; ATTEND Internal Medicine
PROC: 4A033R1 Measurement of Arterial Saturation, Peripheral, Percutaneous Approach (ICD-10-PCS; principal; 2016-08-25)
DX: J15.9 Unspecified bacterial pneumonia (principal); J96.21 Acute and chronic respiratory failure with hypoxia; J84.10 Pulmonary fibrosis, unspecified; J44.1 Chronic obstructive pulmonary disease with (acute) exacerbation; G30.1 Alzheimer's disease with late onset; Z99.81 Dependence on supplemental oxygen; F02.80 Dementia in other diseases classified elsewhere, unspecified severity, without behavioral disturbance, psychotic disturbance, mood disturbance, and anxiety; F32.9 Major depressive disorder, single episode, unspecified; R26.9 Unspecified abnormalities of gait and mobility; R53.1 Weakness; I10 Essential (primary) hypertension; E78.00 Pure hypercholesterolemia, unspecified; E87.6 Hypokalemia; R11.2 Nausea with vomiting, unspecified; K21.9 Gastro-esophageal reflux disease without esophagitis; F41.9 Anxiety disorder, unspecified; M19.90 Unspecified osteoarthritis, unspecified site; Z85.118 Personal history of other malignant neoplasm of bronchus and lung; Z88.5 Allergy status to narcotic agent; Z88.8 Allergy status to other drugs, medicaments and biological substances; Z87.891 Personal history of nicotine dependence; Z92.21 Personal history of antineoplastic chemotherapy
CPT/HCPCS: 36415; 36600; 71010; 71260; 80048; 80053; 81001; 82803; 82962; 83605; 83735; 83880; 84484; 85025; 85027; 85610; 85730; 87040; 87070; 87077; 87086; 87186; 87205; 87641; 87804; 93005; 94640; 94660; 96365; 96366; 96372; 96375; 97162; 98960; 99284; A9698; G0237; J0456; J0696; J1650; J2060; J2930; J3475; J3490; J7040; J7060; J7070; J7614; J7620